=== PATIENT | male | born 1940 | race Caucasian/White ===

== ENCOUNTER 2018-04-01 11:31 | Observation (INO) | payer MEDICARE, OTHER ==
[2018-04-01 11:36] VITALS: BMI 28.1
--- NOTE | 2018-04-01 12:00 | C.PDOC ---
History Of Present Illness 77 year old male, whose PMHx includes CHF, presents to the ED for evaluation of shortness of breath which has been progressively worsening since its onset one week ago. Patient states he experiences shortness of breath with walking one block and climbing stairs at home. Patient reports experiencing mid-sternal chest tightness last night, but denies any chest pain currently. He reports increased congestion and mucus production. Patient states he was told that he has "fluid in his lungs" a few years ago. Patient denies fever, chills, leg pain , leg swelling. Time Seen by Provider: 04/01/18 11:39 Chief Complaint (Nursing): Shortness Of Breath History Per: Patient History/Exam Limitations: no limitations Onset/Duration Of Symptoms: Other (1 week ) Current Symptoms Are (Timing): Worse Quality: Tightness, "Pain" Exacerbating Factor(s): Exertion Current Respiratory Medications: See Home Med List Associated Symptoms: Chest Pain. denies: Fever, Chills Additional History Per: Patient Past Medical History Reviewed: Historical Data, Nursing Documentation, Vital Signs Vital Signs: Last Vital Signs Temp 98.7 F 04/01/18 11:35 Pulse 70 04/01/18 13:36 Resp 20 04/01/18 13:36 BP 169/85 H 04/01/18 13:36 Pulse Ox 94 L 04/01/18 14:25 - Medical History PMH: Fractures (ankle), HTN, Hypercholesterolemia, Kidney Stones Surgical History: Endoscopy - [facility] Procedures CATARAC PHACOEMULS/ASPIR (12/17/14) INSERT LENS AT CATAR EXT (12/17/14) LINEAR REP LID LACER (05/06/13) Family History: States: Unknown Family Hx - Social History Hx Tobacco Use: No Hx Alcohol Use: Yes Hx Substance Use: No - Immunization History Hx Tetanus Toxoid Vaccination: No Hx Influenza Vaccination: No Hx Pneumococcal Vaccination: No Review Of Systems Constitutional: Negative for: Fever, Chills Respiratory: Positive for: Shortness of Breath Musculoskeletal: Negative for: Leg Pain Physical Exam - Physical Exam Appears: Non-toxic, No Acute Distress Skin: Normal Color, Warm, Dry Head: Atraumatic, Normacephalic Eye(s): bilateral: Normal Inspection Oral Mucosa: Moist Neck: Supple Chest: Symmetrical, No Deformity, No Tenderness Cardiovascular: Rhythm Regular, No Murmur Respiratory: Normal Breath Sounds, No Rales, No Rhonchi, No Wheezing Extremity: Normal ROM, No Pedal Edema, Capillary Refill (less than 2 seconds ), No Swelling Neurological/Psych: Oriented x3, Normal Speech ED Course And Treatment - Laboratory Results Result Diagrams: 04/01/18 12:07 04/01/18 12:07 Lab Interpretation: No Acute Changes ECG: Interpreted By Me, Viewed By Me ECG Rhythm: Sinus Rhythm ECG Interpretation: No Acute Changes Rate From EC O2 Sat by Pulse Oximetry: 94 - CT Scan/US Chest X-Ray Other Rad Studies (CT/US): Interpreted By Me, Read By Radiologist, Radiology Report Reviewed CT/US Interpretation: HISTORY: SOB. COMPARISON: No prior. TECHNIQUE: Chest PA and lateral. FINDINGS: LUNGS: Opacity right base may be due to pleural effusion and/or superimposed infiltrate. No abnormal opacity elsewhere. PLEURA : Small right pleural effusion. No left pleural effusion. Likely fluid within right major fissure. No pneumothorax. CARDIOVASCULAR: Normal. OSSEOUS STRUCTURES: No significant abnormalities. VISUALIZED UPPER ABDOMEN: Normal. OTHER FINDINGS: None. IMPRESSION: Small right pleural effusion. Cannot rule out infiltrate at right base. Otherwise unremarkable. Medical Decision Making Medical Decision Making: Impression: 77 year old male with shortness of breath Plan: * bloodwork * urinalysis * CXR * EKG * Lasix IVP Progress: bloodwork, urinalysis, CXR, EKG ordered and reviewed. Lasix IVP administered. Contact Dr Yang for obs-admission. He accepts patient to service Also contact medical instrument technician Disposition Counseled Patient/Family Regarding: Need For Followup - Disposition Disposition: HOSPITALIZED Disposition Time: 14:10 Condition: STABLE - POA Present On Arrival: None - Clinical Impression Clinical Impression: CHF exacerbation - PA / BOMB LOADER / Resident Statement MD/DO has reviewed & agrees with the documentation as recorded. - Scribe Statement The provider has reviewed the documentation as recorded by the Scribe (Destinee Viveros) All medical record entries made by the Scribe were at my direction and personally dictated by me. I have reviewed the chart and agree that the record accurately reflects my personal performance of the history, physical exam, medical decision making, and the department course for this patient. I have also personally directed, reviewed, and agree with the discharge instructions and disposition. Decision To Admit - Pt Status Changed To: Hospital Disposition Of: Observation - . Bed Request Type: Telemetry Admitting Physician: Kian Yang Jr. Patient Diagnosis: CHF exacerbation
[2018-04-01 12:11] LABS: BASO % 0.4 % (0.0-2.0); EOS # 0.7 K/uL (0.0-0.7); EOS % 8.3 % (0.0-4.0); LYMPH % 12.4 % (20.0-40.0); MEAN CELL VOLUME 91.6 fL (80.0-94.0); MEAN CORPUSCULAR HEMOGLOBIN 31.7 pg (27.0-31.0); MEAN CORPUSCULAR HGB CONC 34.6 g/dL (33.0-37.0); MEAN PLATELET VOLUME 8.7 fL (7.2-11.7); MONO # 0.5 K/uL (0.0-0.8); MONO % 6.7 % (0.0-10.0); NEUT # 5.9 K/uL (1.8-7.0); NEUT % 72.2 % (50.0-75.0); NRBC % 0.1 % (0.0-2.0); RBC 4.4 Mil/uL (4.40-5.90); RED CELL DISTRIBUTION WIDTH 16.5 % (11.5-14.5); WHITE BLOOD COUNT 8.2 K/uL (4.8-10.8)
[2018-04-01 12:21] LABS: INR 1.2; PROTHROMBIN TIME 12.7 SECONDS (9.7-12.2)
[2018-04-01 12:36] LABS: ALB/GLOB RATIO 1.2 (1.0-2.1); ALBUMIN 4.3 g/dL (3.5-5.0); CALCIUM 8.9 mg/dl (8.6-10.4)
[2018-04-01 12:47] LABS: TROPONIN I 0.042 ng/mL (0.00-0.120)
[2018-04-01 13:16] LABS: URINE BILIRUBIN NEGATIVE (NEGATIVE); URINE BLOOD 1+ (NEGATIVE); URINE CLARITY Clear (Clear); URINE COLOR Straw (YELLOW); URINE GLUCOSE (UA) NORMAL (Normal); URINE LEUKOCYTE ESTERASE NEG Leu/uL (Negative); URINE PROTEIN 2+ mg/dL (NEGATIVE); URINE UROBILINOGEN NORMAL mg/dL (0.2-1.0)
--- NOTE | 2018-04-01 13:23 | RAD ---
HISTORY: SOB COMPARISON: No prior. TECHNIQUE: Chest PA and lateral FINDINGS: LUNGS: Opacity right base may be due to pleural effusion and/or superimposed infiltrate. No abnormal opacity elsewhere. PLEURA: Small right pleural effusion. No left pleural effusion. Likely fluid within right major fissure. No pneumothorax. CARDIOVASCULAR: Normal. OSSEOUS STRUCTURES: No significant abnormalities. VISUALIZED UPPER ABDOMEN: Normal. OTHER FINDINGS: None. IMPRESSION: Small right pleural effusion. Cannot rule out infiltrate at right base. Otherwise unremarkable.
--- NOTE | 2018-04-01 15:13 | CP.PCM.HP ---
History of Present Illness - History of Present Illness History of Present Illness: 77 year old male with past medical history of CHF, HTN, CAD s/p stent presents to the ED complaining of fatigue and shortness of breath. Patient states his symptoms started 3 days ago and they are getting worse progressively. Patient also complains of one episode of chest pain which only lasted 1 minute and it resolved by itself without any intervention. Patient's shortness of breath is worse with exertion and improves with resting. Patient sleeps in a sitting position to avoid his shortness of breath. Currently patient is resting in bed comfortably. He denies of having fever, chills, vision changes, headache, nausea, vomiting, diarrhea, or lower extremity swelling. PMD: Dr. Yang, cardiology Dr. Aguirre PMHx: CHF, HTN, CAD s/p stent PSHx: coronary stent x 1 Allergy: NKDA Social: Social alcohol consumption. Denies tobacco and other drug use Home meds: flomax, torporl, plavix, cilostazol, naproxen, cyclobenzaprine Present on Admission - Present on Admission Any Indicators Present on Admission: No Review of Systems - Review of Systems All systems: reviewed and no additional remarkable complaints except - Constitutional Constitutional: As Per HPI, Lethargy. absent: Anorexia, Chills, Fatigue, Fever - EENT Eyes: As Per HPI. absent: Decreased Night Vision, Diplopia Ears: As Per HPI. absent: Decreased Hearing, Disequilibrium, Dizziness Nose/Mouth/Throat: As Per HPI. absent: Nasal Congestion, Nasal Trauma, Sinus Pressure - Cardiovascular Cardiovascular: As Per HPI, Chest Pain, Dyspnea, Orthopnea. absent: Edema, Leg Edema - Respiratory Respiratory: As Per HPI, Dyspnea. absent: Wheezing - Gastrointestinal Gastrointestinal: As Per HPI. absent: Abdominal Pain, Diarrhea, Nausea, Vomiting - Genitourinary Genitourinary: As Per HPI. absent: Difficulty Urinating, Dysuria - Reproductive: Male Reproductive:Male: As Per HPI - Musculoskeletal Musculoskeletal: As Per HPI. absent: Abnormal Gait, Deformity, Joint Swelling - Integumentary Integumentary: As Per HPI. absent: Acne, Alopecia, Change in Nails - Neurological Neurological: As Per HPI. absent: Dizziness, Numbness, Syncope, Tremor - Psychiatric Psychiatric: As Per HPI. absent: Anxiety, Confusion, Depression - Endocrine Endocrine: As Per HPI. absent: Change in Body Appearance, Cold Intolorance - Hematologic/Lymphatic Hematologic: As Per HPI Past Patient History - Past Medical History & Family History Past Medical History?: Yes - Past Social History Smoking Status: Former Smoker - CARDIAC Hx Hypercholesterolemia: Yes Hx Hypertension: Yes - PULMONARY Hx Respiratory Disorders: Yes Other/Comment: hx pleural effusion may yrs ago - NEUROLOGICAL Hx Neurological Disorder: No - HEENT Hx HEENT Problems: Yes Hx Cataracts: Yes - RENAL Hx Kidney Stones: Yes - ENDOCRINE/METABOLIC Hx Endocrine Disorders: No - HEMATOLOGICAL/ONCOLOGICAL Hx Blood Disorders: No - INTEGUMENTARY Hx Dermatological Problems: No - MUSCULOSKELETAL/RHEUMATOLOGICAL Hx Fractures: Yes (ankle) - GASTROINTESTINAL Hx Gastrointestinal Disorders: No - GENITOURINARY/GYNECOLOGICAL Hx Genitourinary Disorders: Yes Hx Prostate Problems: Yes - PSYCHIATRIC Hx Substance Use: No - SURGICAL HISTORY Hx Surgeries: Yes Hx Cataract Extraction: Yes (right) Hx Cardiac Catheterization: Yes Hx Open Reduction Internal Fixation: Yes (ankle) - ANESTHESIA Hx Anesthesia: Yes Hx Anesthesia Reactions: No Hx Malignant Hyperthermia: No Meds Allergies/Adverse Reactions: Allergies Allergy/AdvReac Type Severity Reaction Status Date / Time No Known Allergies Allergy Verified 04/01/18 11:35 Physical Exam - Constitutional Appears: Non-toxic, No Acute Distress - Head Exam Head Exam: ATRAUMATIC, NORMOCEPHALIC - Eye Exam Eye Exam: EOMI, Normal appearance Pupil Exam: NORMAL ACCOMODATION, PERRL - ENT Exam ENT Exam: Mucous Membranes Moist - Neck Exam Neck exam: Negative for: Normal Inspection Additional comments: Right sided JVD - Respiratory Exam Respiratory Exam: Clear to Auscultation Bilateral, NORMAL BREATHING PATTERN. absent: Rhonchi, Wheezes, Respiratory Distress - Cardiovascular Exam Cardiovascular Exam: REGULAR RHYTHM, JVD. absent: Diastolic murmur, Systolic Murmur - GI/Abdominal Exam GI & Abdominal Exam: Normal Bowel Sounds, Soft. absent: Tenderness - Extremities Exam Extremities exam: Positive for: normal inspection, pedal pulses present. Negative for: joint swelling, tenderness - Back Exam Back exam: NORMAL INSPECTION - Neurological Exam Neurological exam: Alert, CN II-XII Intact, Oriented x3 - Psychiatric Exam Psychiatric exam: Normal Affect, Normal Mood - Skin Skin Exam: Dry, Normal Color, Warm Results - Vital Signs Recent Vital Signs: Last Vital Signs Temp 98.7 F 04/01/18 11:35 Pulse 70 04/01/18 13:36 Resp 20 04/01/18 13:36 BP 169/85 H 04/01/18 13:36 Pulse Ox 94 L 04/01/18 14:28 - Labs Result Diagrams: 04/01/18 12:07 04/01/18 12:07 Labs: Laboratory Results - last 24 hr 04/01/18 04/01/18 04/01/18 12:07 12:07 12:07 WBC 8.2 RBC 4.40 Hgb 14.0 Hct 40.3 MCV 91.6 MCH 31.7 H MCHC 34.6 RDW 16.5 H Plt Count 326 MPV 8.7 Neut % (Auto) 72.2 Lymph % (Auto) 12.4 L [place] % (Auto) 6.7 Eos % (Auto) 8.3 H Baso % (Auto) 0.4 Neut # (Auto) 5.9 Lymph # (Auto) 1.0 [place] # (Auto) 0.5 Eos # (Auto) 0.7 Baso # (Auto) 0.0 PT 12.7 H INR 1.2 APTT 37 H Sodium 142 Potassium 3.7 Chloride 102 Carbon Dioxide 29 Anion Gap 15 BUN 17 Creatinine 1.7 H Est GFR ( Amer) 47 Est GFR (Non-Af Amer) 39 Random Glucose 173 H Calcium 8.9 Total Bilirubin 0.8 AST 31 ALT 18 L Alkaline Phosphatase 110 Troponin I 0.0420 NT-Pro-B Natriuret Pep 1690 H Total Protein 7.8 Albumin 4.3 Globulin 3.5 Albumin/Globulin Ratio 1.2 Triglycerides 218 H Cholesterol 193 LDL Cholesterol Direct 109 HDL Cholesterol 42 Urine Color Urine Clarity Urine pH Ur Specific [place] Urine Protein Urine Glucose (UA) Urine Ketones Urine Blood Urine Nitrate Urine Bilirubin Urine Urobilinogen Ur Leukocyte Esterase Urine WBC (Auto) Urine RBC (Auto) 04/01/18 12:50 WBC RBC Hgb Hct MCV MCH MCHC RDW Plt Count MPV Neut % (Auto) Lymph % (Auto) [place] % (Auto) Eos % (Auto) Baso % (Auto) Neut # (Auto) Lymph # (Auto) [place] # (Auto) Eos # (Auto) Baso # (Auto) PT INR APTT Sodium Potassium Chloride Carbon Dioxide Anion Gap BUN Creatinine Est GFR ( Amer) Est GFR (Non-Af Amer) Random Glucose Calcium Total Bilirubin AST ALT Alkaline Phosphatase Troponin I NT-Pro-B Natriuret Pep Total Protein Albumin Globulin Albumin/Globulin Ratio Triglycerides Cholesterol LDL Cholesterol Direct HDL Cholesterol Urine Color Straw Urine Clarity Clear Urine pH 6.0 Ur Specific [place] 1.008 Urine Protein 2+ H Urine Glucose (UA) Normal Urine Ketones Negative Urine Blood 1+ H Urine Nitrate Negative Urine Bilirubin Negative Urine Urobilinogen Normal Ur Leukocyte Esterase Neg Urine WBC (Auto) < 1 Urine RBC (Auto) 1 Assessment & Plan - Assessment and Plan (Free Text) Assessment: Acute diastolic heart failure exacerbation -BNP 1690 -EKG normal sinus rhythm at 70bpm, no axis deviation, no acute ST changes -Lasix 40mg IV daily -Metoprolol 50mg BID -ASA 81mg -Follow up Echo -Cardiology consulted, Dr. Aguirre help appreciated -Daily weight -Input & output -HOB 45 degree -2gm Na diet HTN -Lisinopril 10mg -Metoprolol 50mg BID CAD -ASA 81mg -Plavix 75mg -Metoprolol 50mg BID PVD -Cilostazol 100mg po BPH -Flomax 0.4mg Prophylactic measures -Pepcid -Lovenox Discussed case with attending Dr. Yang
[2018-04-01] MEDS: Metoprolol Succinate 50 mg XL Tab PO SCH (19:13)
[2018-04-01 20:10] LABS: CK-MB 1.93 ng/mL (0.0-3.38); TROPONIN I 0.044 ng/mL (0.00-0.120)
--- NOTE | 2018-04-01 21:51 | CP.PCM.CON ---
History of Present Illness - History of Present Illness History of Present Illness: 77 year old male with past medical history of CHF, HTN, CAD s/p stent presents to the ED complaining of fatigue and shortness of breath. Patient states his symptoms started 3 days ago and they are getting worse progressively. Patient also complains of one episode of chest pain which only lasted 1 minute and it resolved by itself without any intervention. Patient's shortness of breath is worse with exertion and improves with resting. Patient sleeps in a sitting position to avoid his shortness of breath. Currently patient is resting in bed comfortably. He denies of having fever, chills, vision changes, headache, nausea, vomiting, diarrhea, or lower extremity swelling. PMD: Dr. Yang PMHx: CHF, HTN, CAD s/p stent PSHx: coronary stent x 1 Allergy: NKDA Social: Social alcohol consumption. Denies tobacco and other drug use Home meds: flomax, torporl, plavix, cilostazol, naproxen, cyclobenzaprine Present on Admission - Present on Admission Any Indicators Present on Admission: No Review of Systems - Review of Systems All systems: reviewed and no additional remarkable complaints except - Constitutional Constitutional: As Per HPI, Lethargy. absent: Anorexia, Chills, Fatigue, Fever - EENT Eyes: As Per HPI. absent: Decreased Night Vision, Diplopia Ears: As Per HPI. absent: Decreased Hearing, Disequilibrium, Dizziness Nose/Mouth/Throat: As Per HPI. absent: Nasal Congestion, Nasal Trauma, Sinus Pressure - Cardiovascular Cardiovascular: As Per HPI, Chest Pain, Dyspnea, Orthopnea. absent: Edema, Leg Edema - Respiratory Respiratory: As Per HPI, Dyspnea. absent: Wheezing - Gastrointestinal Gastrointestinal: As Per HPI. absent: Abdominal Pain, Diarrhea, Nausea, Vomiting - Genitourinary Genitourinary: As Per HPI. absent: Difficulty Urinating, Dysuria - Reproductive: Male Reproductive:Male: As Per HPI - Musculoskeletal Musculoskeletal: As Per HPI. absent: Abnormal Gait, Deformity, Joint Swelling - Integumentary Integumentary: As Per HPI. absent: Acne, Alopecia, Change in Nails - Neurological Neurological: As Per HPI. absent: Dizziness, Numbness, Syncope, Tremor - Psychiatric Psychiatric: As Per HPI. absent: Anxiety, Confusion, Depression - Endocrine Endocrine: As Per HPI. absent: Change in Body Appearance, Cold Intolorance - Hematologic/Lymphatic Hematologic: As Per HPI Physical Exam - Constitutional Appears: Non-toxic, No Acute Distress - Head Exam Head Exam: ATRAUMATIC, NORMOCEPHALIC - Eye Exam Eye Exam: EOMI, Normal appearance Pupil Exam: NORMAL ACCOMODATION, PERRL - ENT Exam ENT Exam: Mucous Membranes Moist - Neck Exam Neck exam: Negative for: Normal Inspection Additional comments: Right sided JVD - Respiratory Exam Respiratory Exam: Clear to Auscultation Bilateral, NORMAL BREATHING PATTERN. absent: Rhonchi, Wheezes, Respiratory Distress - Cardiovascular Exam Cardiovascular Exam: REGULAR RHYTHM, JVD. absent: Diastolic murmur, Systolic Murmur - GI/Abdominal Exam GI & Abdominal Exam: Normal Bowel Sounds, Soft. absent: Tenderness - Extremities Exam Extremities exam: Positive for: normal inspection, pedal pulses present. Negative for: joint swelling, tenderness - Back Exam Back exam: NORMAL INSPECTION - Neurological Exam Neurological exam: Alert, CN II-XII Intact, Oriented x3 - Psychiatric Exam Psychiatric exam: Normal Affect, Normal Mood - Skin Skin Exam: Dry, Normal Color, Warm Past Patient History - Past Medical History & Family History Past Medical History?: Yes - Past Social History Smoking Status: Former Smoker - CARDIAC Hx Hypercholesterolemia: Yes Hx Hypertension: Yes - PULMONARY Hx Respiratory Disorders: Yes Other/Comment: hx pleural effusion may yrs ago - NEUROLOGICAL Hx Neurological Disorder: No - HEENT Hx HEENT Problems: Yes Hx Cataracts: Yes - RENAL Hx Kidney Stones: Yes - ENDOCRINE/METABOLIC Hx Endocrine Disorders: No - HEMATOLOGICAL/ONCOLOGICAL Hx Blood Disorders: No - INTEGUMENTARY Hx Dermatological Problems: No - MUSCULOSKELETAL/RHEUMATOLOGICAL Hx Fractures: Yes (ankle) - GASTROINTESTINAL Hx Gastrointestinal Disorders: No - GENITOURINARY/GYNECOLOGICAL Hx Genitourinary Disorders: Yes Hx Prostate Problems: Yes - PSYCHIATRIC Hx Substance Use: No - SURGICAL HISTORY Hx Surgeries: Yes Hx Cataract Extraction: Yes (right) Hx Cardiac Catheterization: Yes Hx Open Reduction Internal Fixation: Yes (ankle) - ANESTHESIA Hx Anesthesia: Yes Hx Anesthesia Reactions: No Hx Malignant Hyperthermia: No Meds Home Medications: Home Medication List Medication Instructions Recorded Confirmed Type Lisinopril [Zestril] 20 mg PO DAILY 30 Days #60 tab 04/03/18 Rx Allergies/Adverse Reactions: Allergies Allergy/AdvReac Type Severity Reaction Status Date / Time No Known Allergies Allergy Verified 04/01/18 11:35 - Medications Medications: Current Medications Aspirin (Ecotrin) 81 mg PO DAILY [facility] Cilostazol (Pletal) 100 mg PO DAILY [facility] Clopidogrel Bisulfate (Plavix) 75 mg PO DAILY [facility] Enoxaparin Sodium (Lovenox) 40 mg SC DAILY [facility] Famotidine (Pepcid) 20 mg PO DAILY [facility] Furosemide (Lasix) 40 mg IVP DAILY [facility] Lisinopril (Zestril) 10 mg PO DAILY [facility] Metoprolol Succinate (Toprol Xl) 50 mg PO BID [facility] Last Admin: 04/01/18 19:13 Dose: 50 mg Tamsulosin HCl (Flomax) 0.4 mg PO DAILY [facility] Results - Vital Signs Recent Vital Signs: Last Vital Signs Temp 97.9 F 04/01/18 16:38 Pulse 69 04/01/18 16:38 Resp 20 04/01/18 16:38 BP 175/93 H 04/01/18 16:38 Pulse Ox 96 04/01/18 14:50 - Labs Result Diagrams: 04/03/18 06:18 04/03/18 06:18 Labs: Laboratory Results - last 24 hr 04/01/18 04/01/18 04/01/18 12:07 12:07 12:07 WBC 8.2 RBC 4.40 Hgb 14.0 Hct 40.3 MCV 91.6 MCH 31.7 H MCHC 34.6 RDW 16.5 H Plt Count 326 MPV 8.7 Neut % (Auto) 72.2 Lymph % (Auto) 12.4 L [place] % (Auto) 6.7 Eos % (Auto) 8.3 H Baso % (Auto) 0.4 Neut # (Auto) 5.9 Lymph # (Auto) 1.0 [place] # (Auto) 0.5 Eos # (Auto) 0.7 Baso # (Auto) 0.0 PT 12.7 H INR 1.2 APTT 37 H Sodium 142 Potassium 3.7 Chloride 102 Carbon Dioxide 29 Anion Gap 15 BUN 17 Creatinine 1.7 H Est GFR ( Amer) 47 Est GFR (Non-Af Amer) 39 Random Glucose 173 H Calcium 8.9 Total Bilirubin 0.8 AST 31 ALT 18 L Alkaline Phosphatase 110 Total Creatine Kinase CK-MB (Mass) Troponin I 0.0420 NT-Pro-B Natriuret Pep 1690 H Total Protein 7.8 Albumin 4.3 Globulin 3.5 Albumin/Globulin Ratio 1.2 Triglycerides 218 H Cholesterol 193 LDL Cholesterol Direct 109 HDL Cholesterol 42 Urine Color Urine Clarity Urine pH Ur Specific [place] Urine Protein Urine Glucose (UA) Urine Ketones Urine Blood Urine Nitrate Urine Bilirubin Urine Urobilinogen Ur Leukocyte Esterase Urine WBC (Auto) Urine RBC (Auto) 04/01/18 04/01/18 12:50 19:30 WBC RBC Hgb Hct MCV MCH MCHC RDW Plt Count MPV Neut % (Auto) Lymph % (Auto) [place] % (Auto) Eos % (Auto) Baso % (Auto) Neut # (Auto) Lymph # (Auto) [place] # (Auto) Eos # (Auto) Baso # (Auto) PT INR APTT Sodium Potassium Chloride Carbon Dioxide Anion Gap BUN Creatinine Est GFR ( Amer) Est GFR (Non-Af Amer) Random Glucose Calcium Total Bilirubin AST ALT Alkaline Phosphatase Total Creatine Kinase 119 CK-MB (Mass) 1.93 Troponin I 0.0440 NT-Pro-B Natriuret Pep Total Protein Albumin Globulin Albumin/Globulin Ratio Triglycerides Cholesterol LDL Cholesterol Direct HDL Cholesterol Urine Color Straw Urine Clarity Clear Urine pH 6.0 Ur Specific [place] 1.008 Urine Protein 2+ H Urine Glucose (UA) Normal Urine Ketones Negative Urine Blood 1+ H Urine Nitrate Negative Urine Bilirubin Negative Urine Urobilinogen Normal Ur Leukocyte Esterase Neg Urine WBC (Auto) < 1 Urine RBC (Auto) 1 Assessment & Plan - Assessment and Plan (Free Text) Assessment: Acute diastolic heart failure exacerbation -BNP 1690 -EKG normal sinus rhythm at 70bpm, no axis deviation, no acute ST changes -Lasix 40mg IV daily -Metoprolol 50mg BID -ASA 81mg -Follow up Echo -Daily weight -Input & output -HOB 45 degree -2gm Na diet HTN -Lisinopril 10mg -Metoprolol 50mg BID CAD -ASA 81mg -Plavix 75mg -Metoprolol 50mg BID PVD -Cilostazol 100mg po BPH -Flomax 0.4mg Prophylactic measures -Pepcid -Lovenox
[2018-04-02 01:32] LABS: CK-MB 1.33 ng/mL (0.0-3.38); TROPONIN I 0.047 ng/mL (0.00-0.120)
[2018-04-02] MEDS ORDERED: Pneumococcal 23-Valent Vaccine IM ONE (10:00)
[2018-04-02] MEDS: Metoprolol Succinate 50 mg XL Tab PO SCH ×2 (10:03→18:10)
[2018-04-02] MEDS: Enoxaparin 40 mg Syringe SC SCH (10:04)
[2018-04-02] MEDS: Cilostazol 100 mg Tab UD PO SCH (10:04)
--- NOTE | 2018-04-02 14:43 | CP.PCM.PN ---
Subjective - Date & Time of Evaluation Date of Evaluation: 04/02/18 Time of Evaluation: 11:15 - Subjective Subjective: Patient seen and examined at bedside. Patient was hypertensive overnight but asymptomatic, Hydralazine IV was given. Currently he is resting in bed comfortably. Patient understands that he needs cardiology evaluation and echo. Patient denies fever, chills, shortness of breath, chest pain, nausea, vomiting , or urinary symptoms. Objective - Vital Signs/Intake and Output Vital Signs (last 24 hours): Temp Pulse Resp BP Pulse Ox 98.2 F 71 18 178/76 H 96 04/02/18 07:40 04/02/18 12:35 04/02/18 07:40 04/02/18 10:02 04/02/18 12:02 - Medications Medications: Current Medications Aspirin (Ecotrin) 81 mg PO DAILY [facility] Last Admin: 04/02/18 10:03 Dose: 81 mg Cilostazol (Pletal) 100 mg PO DAILY [facility] Last Admin: 04/02/18 10:04 Dose: 100 mg Clopidogrel Bisulfate (Plavix) 75 mg PO DAILY [facility] Last Admin: 04/02/18 10:03 Dose: 75 mg Enoxaparin Sodium (Lovenox) 40 mg SC DAILY [facility] Last Admin: 04/02/18 10:04 Dose: 40 mg Famotidine (Pepcid) 20 mg PO DAILY [facility] Last Admin: 04/02/18 10:03 Dose: 20 mg Furosemide (Lasix) 40 mg IVP DAILY [facility] Last Admin: 04/02/18 10:02 Dose: 40 mg Lisinopril (Zestril) 10 mg PO DAILY [facility] Last Admin: 04/02/18 10:03 Dose: 10 mg Metoprolol Succinate (Toprol Xl) 50 mg PO BID [facility] Last Admin: 04/02/18 10:03 Dose: 50 mg Tamsulosin HCl (Flomax) 0.4 mg PO DAILY [facility] Last Admin: 04/02/18 10:03 Dose: 0.4 mg - Labs Labs: 04/01/18 12:07 04/01/18 12:07 PT 12.7 SECONDS (9.7-12.2) H 04/01/18 12:07 INR 1.2 04/01/18 12:07 APTT 37 SECONDS (21-34) H 04/01/18 12:07 - Additional Findings Additional findings: - Constitutional Appears: Non-toxic, No Acute Distress - Head Exam Head Exam: ATRAUMATIC, NORMOCEPHALIC - Eye Exam Eye Exam: EOMI, Normal appearance Pupil Exam: NORMAL ACCOMODATION, PERRL - ENT Exam ENT Exam: Mucous Membranes Moist - Neck Exam Neck exam: Negative for: Normal Inspection - Respiratory Exam Respiratory Exam: Clear to Auscultation Bilateral, NORMAL BREATHING PATTERN. absent: Rhonchi, Wheezes, Respiratory Distress - Cardiovascular Exam Cardiovascular Exam: REGULAR RHYTHM, JVD. absent: Diastolic murmur, Systolic Murmur - GI/Abdominal Exam GI & Abdominal Exam: Normal Bowel Sounds, Soft. absent: Tenderness - Extremities Exam Extremities exam: Positive for: normal inspection, pedal pulses present. Negative for: joint swelling, tenderness - Back Exam Back exam: NORMAL INSPECTION - Neurological Exam Neurological exam: Alert, CN II-XII Intact, Oriented x3 - Psychiatric Exam Psychiatric exam: Normal Affect, Normal Mood - Skin Skin Exam: Dry, Normal Color, Warm Assessment and Plan - Assessment and Plan (Free Text) Assessment: Acute diastolic heart failure exacerbation -Troponin negative x3 -BNP 1690 -EKG normal sinus rhythm at 70bpm, no axis deviation, no acute ST changes -Lasix 40mg IV daily -Metoprolol 50mg BID -ASA 81mg -Follow up Echo -Cardiology consulted, Dr. Aguirre help appreciated -Daily weight -Input & output -HOB 45 degree -2gm Na diet HTN -Lisinopril 20mg -Metoprolol 50mg BID CAD -ASA 81mg -Plavix 75mg -Metoprolol 50mg BID PVD -Cilostazol 100mg po BPH -Flomax 0.4mg Prophylactic measures -Pepcid -Lovenox
[2018-04-03 06:31] LABS: BASO # 0.1 K/uL (0.0-0.2); BASO % 1.5 % (0.0-2.0); EOS # 0.6 K/uL (0.0-0.7); EOS % 7.7 % (0.0-4.0); HEMOGLOBIN 13.5 g/dL (12.0-18.0); LYMPH # 0.9 K/uL (1.0-4.3); LYMPH % 11.5 % (20.0-40.0); MEAN CELL VOLUME 91.1 fL (80.0-94.0); MEAN CORPUSCULAR HEMOGLOBIN 32.1 pg (27.0-31.0); MEAN CORPUSCULAR HGB CONC 35.3 g/dL (33.0-37.0); MEAN PLATELET VOLUME 8.7 fL (7.2-11.7); MONO # 0.7 K/uL (0.0-0.8); MONO % 9.5 % (0.0-10.0); NEUT # 5.3 K/uL (1.8-7.0); NEUT % 69.8 % (50.0-75.0); NRBC % 0.1 % (0.0-2.0); RBC 4.2 Mil/uL (4.40-5.90); RED CELL DISTRIBUTION WIDTH 16.2 % (11.5-14.5); WHITE BLOOD COUNT 7.6 K/uL (4.8-10.8)
[2018-04-03 06:50] LABS: ALB/GLOB RATIO 1.2 (1.0-2.1); ALBUMIN 3.7 g/dL (3.5-5.0); CALCIUM 8.3 mg/dl (8.6-10.4)
[2018-04-03 08:02] VITALS: O2SAT 96
[2018-04-03] MEDS: Metoprolol Succinate 50 mg XL Tab PO SCH ×2 (10:40→17:48)
[2018-04-03] MEDS: Cilostazol 100 mg Tab UD PO SCH (10:41)
[2018-04-03] MEDS: Enoxaparin 40 mg Syringe SC SCH (10:41)
[2018-04-03 15:44] VITALS: BP 156/73; RESP 20; TEMP 97.8
--- NOTE | 2018-04-03 16:26 | CARD ---
APPROVED REPORT EXAM: Two-dimensional and M-mode echocardiogram with Doppler and color Doppler. Other Information Quality : GoodRhythm : INDICATION Cardiac Disease: CAD Congestive Heart Failure RISK FACTORS Hypertension 2D DIMENSIONS IVSd1.3 (0.7-1.1cm)LVDd4.8 (3.9-5.9cm) PWd1.3 (0.7-1.1cm)LVDs2.7 (2.5-4.0cm) FS (%) 43.5 %LVEF (%)65.0 (>50%) M-Mode DIMENSIONS Left Atrium (MM)4.36 (2.5-4.0cm)IVSd1.10 (0.7-1.1cm) Aortic Root3.52 (2.2-3.7cm)LVDd5.75 (4.0-5.6cm) Aortic Cusp Exc.2.12 (1.5-2.0cm)PWd1.08 (0.7-1.1cm) FS (%) 39 %LVDs3.49 (2.0-3.8cm) LVEF (%)69 (>50%) Mitral Valve MV E Asfexldk59.3cm/sMV A Ghkylfxb185.9cm/sE/A ratio0.7 TDI E/Lateral E'0.0E/Medial E'0.0 Tricuspid Valve TR Peak Zplxuvip847rr/sTR Peak Gr.89lxZtUCFB71xmHu LEFT VENTRICLE The left ventricle is normal size. There is mild concentric left ventricular hypertrophy. The left ventricular ejection fraction is within the normal range. Mild lateral wall hypokinesis Transmitral Doppler flow pattern is Grade I-abnormal relaxation pattern. RIGHT VENTRICLE The right ventricle is normal size. There is normal right ventricular wall thickness. The right ventricular systolic function is normal. ATRIA The left atrium is borderline dilated. The right atrium size is normal. AORTIC VALVE The aortic valve is mildly thickened. No aortic regurgitation is present. There is no aortic valvular stenosis. MITRAL VALVE The mitral valve is normal in structure. There is no evidence of mitral valve prolapse. TRICUSPID VALVE There is mild pulmonary hypertension. GREAT VESSELS The aortic root is normal in size. PERICARDIAL EFFUSION There is no pericardial effusion. <Conclusion> The left ventricle is normal size. There is mild concentric left ventricular hypertrophy. The left ventricular ejection fraction is within the normal range. Mild lateral wall hypokinesis Transmitral Doppler flow pattern is Grade I-abnormal relaxation pattern. There is mild pulmonary hypertension.
[2018-04-03 16:39] VITALS: PULSE 75
--- NOTE | 2018-04-03 18:35 | CP.PCM.DIS ---
Provider - Provider Date of Admission: 04/01/18 13:26 Attending physician: Kian Yang Jr, MD Primary care physician: PMD: Dr Yang Consults: Cardio: Dr Aguirre Time Spent in preparation of Discharge (in minutes): 33 Diagnosis - Discharge Diagnosis (1) CHF exacerbation Status: Resolved Priority: High Hospital Course - Lab Results Lab Results: Most Recent Lab Values WBC 7.6 K/uL (4.8-10.8) 04/03/18 06:18 RBC 4.20 Mil/uL (4.40-5.90) L 04/03/18 06:18 Hgb 13.5 g/dL (12.0-18.0) 04/03/18 06:18 Hct 38.3 % (35.0-51.0) 04/03/18 06:18 MCV 91.1 fL (80.0-94.0) 04/03/18 06:18 MCH 32.1 pg (27.0-31.0) H 04/03/18 06:18 MCHC 35.3 g/dL (33.0-37.0) 04/03/18 06:18 RDW 16.2 % (11.5-14.5) H 04/03/18 06:18 Plt Count 291 K/uL (130-400) 04/03/18 06:18 MPV 8.7 fL (7.2-11.7) 04/03/18 06:18 Neut % (Auto) 69.8 % (50.0-75.0) 04/03/18 06:18 Lymph % (Auto) 11.5 % (20.0-40.0) L 04/03/18:18 [place] % (Auto) 9.5 % (0.0-10.0) 04/03/18 06:18 Eos % (Auto) 7.7 % (0.0-4.0) H 04/03/18 06:18 Baso % (Auto) 1.5 % (0.0-2.0) 04/03/18 06:18 Neut # (Auto) 5.3 K/uL (1.8-7.0) 04/03/18 06:18 Lymph # (Auto) 0.9 K/uL (1.0-4.3) L 06/18/18 06:18 [place] # (Auto) 0.7 K/uL (0.0-0.8) 04/03/18 06:18 Eos # (Auto) 0.6 K/uL (0.0-0.7) 04/03/18 06:18 Baso # (Auto) 0.1 K/uL (0.0-0.2) 04/03/18 06:18 PT 12.7 SECONDS (9.7-12.2) H 04/01/18 12:07 INR 1.2 04/01/18 12:07 APTT 37 SECONDS (21-34) H 04/01/18 12:07 Sodium 141 mmol/L (132-148) 04/03/18 06:18 Potassium 4.0 mmol/L (3.6-5.2) 04/03/18 06:18 Chloride 100 mmol/L (98-107) 04/03/18 06:18 Carbon Dioxide 31 mmol/L (22-30) H 04/03/18 06:18 Anion Gap 13 (10-20) 04/03/18 06:18 BUN 29 mg/dL (9-20) H 04/03/18 06:18 Creatinine 2.2 mg/dL (0.8-1.5) H 04/03/18 06:18 Est GFR ( Amer) 35 04/03/18 06:18 Est GFR (Non-Af Amer) 29 04/03/18 06:18 POC Glucose (mg/dL) 127 mg/dL (65-110) H 04/02/18 16:20 Random Glucose 130 mg/dL (75-110) H 04/03/18 06:18 Calcium 8.3 mg/dl (8.6-10.4) L 04/03/18 06:18 Total Bilirubin 0.8 mg/dL (0.2-1.3) 04/03/18 06:18 AST 21 U/L (17-59) 04/03/18 06:18 ALT 20 U/L (21-72) L 04/03/18 06:18 Alkaline Phosphatase 91 U/L (38-126) 04/03/18 06:18 Total Creatine Kinase 110 U/L (55-170) 04/02/18 01:05 CK-MB (Mass) 1.33 ng/mL (0.0-3.38) 04/02/18 01:05 Troponin I 0.0470 ng/mL (0.00-0.120) 04/02/18 01:05 NT-Pro-B Natriuret Pep 1690 pg/mL (0-900) H 04/01/18 12:07 Total Protein 6.7 g/dL (6.3-8.3) 04/03/18 06:18 Albumin 3.7 g/dL (3.5-5.0) 04/03/18 06:18 Globulin 3.0 gm/dL (2.2-3.9) 04/03/18 06:18 Albumin/Globulin Ratio 1.2 (1.0-2.1) 04/03/18 06:18 Triglycerides 218 mg/dL (0-149) H 04/01/18 12:07 Cholesterol 193 mg/dL (0-199) 04/01/18 12:07 LDL Cholesterol Direct 109 mg/dL (0-129) 04/01/18 12:07 HDL Cholesterol 42 mg/dL (30-70) 04/01/18 12:07 Urine Color Straw (YELLOW) 04/01/18 12:50 Urine Clarity Clear (Clear) 04/01/18 12:50 Urine pH 6.0 (5.0-8.0) 04/01/18 12:50 Ur Specific [place] 1.008 (1.003-1.030) 04/01/18 12:50 Urine Protein 2+ mg/dL (NEGATIVE) H 04/01/18 12:50 Urine Glucose (UA) Normal mg/dL (Normal) 04/01/18 12:50 Urine Ketones Negative mg/dL (NEGATIVE) 04/01/18 12:50 Urine Blood 1+ (NEGATIVE) H 04/01/18 12:50 Urine Nitrate Negative (NEGATIVE) 04/01/18 12:50 Urine Bilirubin Negative (NEGATIVE) 04/01/18 12:50 Urine Urobilinogen Normal mg/dL (0.2-1.0) 04/01/18 12:50 Ur Leukocyte Esterase Neg Rebecca/uL (Negative) 04/01/18 12:50 Urine WBC (Auto) < 1 /hpf (0-5) 04/01/18 12:50 Urine RBC (Auto) 1 /hpf (0-3) 06/16/18 12:50 - Hospital Course Hospital Course: History of Present Illness: 77 year old male with past medical history of CHF, HTN, CAD s/p stent presents to the ED complaining of fatigue and shortness of breath. Patient states his symptoms started 3 days ago and they are getting worse progressively. Patient also complains of one episode of chest pain which only lasted 1 minute and it resolved by itself without any intervention. Patient's shortness of breath is worse with exertion and improves with resting. Patient sleeps in a sitting position to avoid his shortness of breath. Currently patient is resting in bed comfortably. He denies of having fever, chills, vision changes, headache, nausea, vomiting, diarrhea, or lower extremity swelling. PMD: Dr. Yang, cardiology Dr. Aguirre PMHx: CHF, HTN, CAD s/p stent PSHx: coronary stent x 1 Allergy: NKDA Social: Social alcohol consumption. Denies tobacco and other drug use Home meds: flomax, torporl, plavix, cilostazol, naproxen, cyclobenzaprine HOSPITAL COURSE: Patient was admitted for acute diastolic CHF exacerbation. He was given lasix, lisinopril and metoprolol as well as aspirin. An Echo was ordered which showed diastolic dysfunction, and normal EF. Cardiology Dr Aguirre was consulted. Trops were negative x3, EKG showed normal sinus rhythm at 70bpm, no axis deviation, no acute ST changes. His daily weights were monitored as well as inputs and outputs. His symptoms resolved on the 3rd day and he was ambulating without shortness of breath. His other chronic conditions were managed as the follows: HTN -Lisinopril 20mg -Metoprolol 50mg BID CAD -ASA 81mg -Plavix 75mg -Metoprolol 50mg BID PVD -Cilostazol 100mg po BPH -Flomax 0.4mg Discharge Exam - Head Exam Head Exam: ATRAUMATIC, NORMOCEPHALIC - Additional Findings Additional findings: - Constitutional Appears: Non-toxic, No Acute Distress - Head Exam Head Exam: ATRAUMATIC, NORMOCEPHALIC - Eye Exam Eye Exam: EOMI, Normal appearance Pupil Exam: NORMAL ACCOMODATION, PERRL - ENT Exam ENT Exam: Mucous Membranes Moist - Neck Exam Neck exam: Negative for: Normal Inspection - Respiratory Exam Respiratory Exam: Clear to Auscultation Bilateral, NORMAL BREATHING PATTERN. absent: Rhonchi, Wheezes, Respiratory Distress - Cardiovascular Exam Cardiovascular Exam: REGULAR RHYTHM, JVD. absent: Diastolic murmur, Systolic Murmur - GI/Abdominal Exam GI & Abdominal Exam: Normal Bowel Sounds, Soft. absent: Tenderness - Extremities Exam Extremities exam: Positive for: normal inspection, pedal pulses present. Negative for: joint swelling, tenderness - Back Exam Back exam: NORMAL INSPECTION - Neurological Exam Neurological exam: Alert, CN II-XII Intact, Oriented x3 - Psychiatric Exam Psychiatric exam: Normal Affect, Normal Mood - Skin Skin Exam: Dry, Normal Color, Warm Discharge Plan - Discharge Medications Prescriptions: Lisinopril [Zestril] 20 mg PO DAILY 30 Days #60 tab - Follow Up Plan Condition: STABLE Disposition: HOME/ ROUTINE Instructions: Heart Failure (DC), Heart Failure (GEN), Pacemaker (DC), Pacemaker (GEN), Pulmonary Edema (DC), Pulmonary Edema (GEN), Ascites (DC), Ascites (GEN) Additional Instructions: Patient is medically cleared for discharge. Patient will need to start the following new medication which has been electronically sent over to his pharmacy: 1. Lisinopril 20mg PO QD to be taken at night before bed Please continue all your regular home medications, this includes: Cilostazol Clopidogrel Cyclobenzaprine as needed only Metoprolol Succinate XL Tamsulosin Tramadol as needed only Please make an appointment with environmental services tech Dr Aguirre and see him 1 week after discharge. His information has been provided. If symptoms return, please return to your closest ER. Referrals: Pablo Aguirre MD [Staff Provider] - Kian Yang Jr., MD [Medical Doctor] - Clinical Quality Measures - CQM - Heart Failure Ejection Fraction: 40 % or Greater Left Ventricular Function to be assessed after discharge: No ELIZABETH Inhibitor Prescribed: Yes Beta-Alessandra Prescribed: Metoprolol Succinate Angiotensin II Receptor Alessandra Prescribed: No Contraindication/Reason for not providing: ELIZABETH inhibitor prescribed AnticoagulationTherapy for Atrial Fibrillation/Atrialflutter: No Contraindication/Reason for not providing: not indicated, he was in NSR Aldosterone Antagonist Prescribed: No Contraindication/Reason for not providing: normal EF Will be discharged to: Home Follow Up Date (must be within 7 days from discharge): 04/10/18 (with Dr Aguirre) Follow Up Time: 09:00
[2018-04-04] MEDS ORDERED: Enoxaparin 30 mg Syringe SC SCH (10:00)
--- NOTE | 2018-04-04 12:14 | CARD ---
APPROVED REPORT EKG Measurement Heart [id number] FL [id number] <Conclusion> Normal sinus rhythm Septal infarct, age undetermined Abnormal ECG
--- NOTE | 2018-04-04 12:14 | CARD ---
APPROVED REPORT EKG Measurement Heart [id number] <Conclusion> Normal sinus rhythm Normal ECG
--- NOTE | 2018-04-04 17:37 | PCM.HF ---
Heart Failure Core Measure - Heart Failure Ejection Fraction: 40 % or Greater ELIZABETH Inhibitor Prescribed: Yes Beta-Alessandra Prescribed: Metoprolol Succinate Angiotensin II Receptor Alessandra Prescribed: No Contraindication/Reason for not providing: on elizabeth AnticoagulationTherapy for Atrial Fibrillation/Atrialflutter: No Contraindication/Reason for not providing: no hx of afib Aldosterone Antagonist Prescribed: No Contraindication/Reason for not providing: EF>45 Hydralazine Nitrate Prescribed: No Contraindication/Reason for not providing: EF>45 Implantable Cardioverter Defibrillator Therapy: No Contraindication/Reason for not providing: EF>45 Cardiac Resynchronization Therapy Prescribed: No Contraindication/Reason for not providing: EF.45 - Follow up Will be discharged to: Home Follow Up Date (must be within 7 days from discharge): 04/07/18 Follow Up Time: 09:00
== END 2018-04-03 20:37 | disposition home or self-care (01) ==
LOC: C.ER 11:31 → C.9E 13:26 → C.6T 14:12
PROVIDERS: ADMIT Internal Medicine; ATTEND Internal Medicine
DX: I11.0 Hypertensive heart disease with heart failure (principal); I50.31 Acute diastolic (congestive) heart failure; I25.10 Atherosclerotic heart disease of native coronary artery without angina pectoris; Z95.5 Presence of coronary angioplasty implant and graft; I73.9 Peripheral vascular disease, unspecified; N40.0 Benign prostatic hyperplasia without lower urinary tract symptoms; E78.00 Pure hypercholesterolemia, unspecified; Z87.891 Personal history of nicotine dependence; Z87.442 Personal history of urinary calculi; Z79.82 Long term (current) use of aspirin; Z79.02 Long term (current) use of antithrombotics/antiplatelets; Z79.899 Other long term (current) drug therapy
CPT/HCPCS: 36415; 71046; 80053; 80061; 81001; 82948; 83880; 84484; 85025; 85610; 85730; 90732; 93005; 93306; 96372; 96374; 96375; 96376; 97116; 97162; 99285; G0009; G0378; G8978; G8979; J0360; J1650; J1940

== ENCOUNTER 2018-04-10 21:18 | Inpatient (IN) | payer MEDICARE, OTHER ==
[2018-04-10 21:19] VITALS: BMI 28.1
--- NOTE | 2018-04-10 21:53 | C.PDOC ---
History Of Present Illness pt presents with worsening shortness of breath for a few days. No chest pain or palpitations. Speaking in 4-5 word sentences. No f/c/n/v. Time Seen by Provider: 04/10/18 21:52 Chief Complaint (Nursing): Shortness Of Breath History Per: Patient History/Exam Limitations: no limitations Onset/Duration Of Symptoms: Days Current Symptoms Are (Timing): Worse Initiating Event: Other Exacerbating Factor(s): Exertion, Laying Flat, Coughing Severity: Moderate Pain Scale Rating Of: 5 Associated Symptoms: denies: Fever, Chills Reports Recently: Seen In ED, Treated By A Physician, Hospitalized Recent travel outside of the [place]: No Additional History Per: Family Past Medical History Reviewed: Historical Data, Nursing Documentation, Vital Signs Vital Signs: Last Vital Signs Temp 99.5 F 04/10/18 22:00 Pulse 64 04/10/18 22:00 Resp 18 04/10/18 22:00 BP 184/78 H 04/10/18 22:00 Pulse Ox 98 04/10/18 22:00 - Medical History PMH: Fractures (ankle), HTN, Hypercholesterolemia, Hypothyroidism, Kidney Stones Denies: Chronic Kidney Disease Surgical History: Endoscopy - [facility] Procedures CATARAC PHACOEMULS/ASPIR (12/17/14) INSERT LENS AT CATAR EXT (12/17/14) LINEAR REP LID LACER (05/06/13) Family History: States: Unknown Family Hx - Social History Hx Tobacco Use: No Hx Alcohol Use: Yes Hx Substance Use: No - Immunization History Hx Tetanus Toxoid Vaccination: Yes Hx Influenza Vaccination: Yes Hx Pneumococcal Vaccination: Yes Review Of Systems Constitutional: Negative for: Fever, Chills Eyes: Negative for: Redness Cardiovascular: Negative for: Chest Pain Respiratory: Positive for: Shortness of Breath, SOB with Excertion Gastrointestinal: Negative for: Nausea, Vomiting, Abdominal Pain Genitourinary: Negative for: Dysuria Musculoskeletal: Negative for: Back Pain Skin: Negative for: Rash Neurological: Negative for: Weakness Psych: Positive for: Anxiety Physical Exam - Physical Exam Appears: Non-toxic Skin: Warm, Dry Head: Normacephalic Eye(s): bilateral: Normal Inspection Oral Mucosa: Moist Neck: Supple Chest: Symmetrical Cardiovascular: Rhythm Regular Respiratory: Decreased Breath Sounds, Rales, No Rhonchi, No Wheezing Gastrointestinal/Abdominal: Bowel Sounds (tympanic to percussion), Soft, No Tenderness, Distention Back: Normal Inspection Extremity: Pedal Edema (trace) Extremity: Bilateral: Atraumatic Pulses: Left Dorsalis Pedis: Normal, Right Dorsalis Pedis: Normal Neurological/Psych: Oriented x3 Gait: Steady ED Course And Treatment - Laboratory Results Result Diagrams: 04/10/18 22:12 04/10/18 22:12 ECG: Interpreted By Me, Viewed By Me ECG Rhythm: Sinus Rhythm (57), Nonspecific Changes O2 Sat by Pulse Oximetry: 95 Pulse Ox Interpretation: Normal - Radiology CXR: Interpreted by Me, Viewed By Me Disposition Discussed With Dr.: Kian Yang Jr. Comment: accepted the pt on his service and took over the care at 11:10 PM Doctor Will See Patient In The: ED Counseled Patient/Family Regarding: Studies Performed, Diagnosis - Disposition Disposition: HOSPITALIZED Disposition Time: 21:53 Condition: FAIR Forms: [facility] (Amharic) - POA Present On Arrival: None - Clinical Impression Clinical Impression: Dyspnea, CHF (congestive heart failure), Renal insufficiency Decision To Admit - Pt Status Changed To: Hospital Disposition Of: Inpatient - Admit Certification Admit to Inpatient:: After my assessment, the patient will require hospitalization for at least two midnights. This is because of the severity of symptoms shown, intensity of services needed, and/or the medical risk in this patient being treated as an outpatient. - InPatient: Physician Admission Certification: I certify that this patient requires 2 or more midnights of care for the following reason:: After my assessment, the patient will require hospitalization for at least two midnights. This is because of the severity of symptoms shown, intensity of services needed, and/or the medical risk in this patient being treated as an outpatient. - . Bed Request Type: Telemetry Admitting Physician: Kian Yang Jr. Patient Diagnosis: Dyspnea, CHF (congestive heart failure), Renal insufficiency
[2018-04-10 22:18] LABS: BASO # 0.2 K/uL (0.0-0.2); BASO % 2.4 % (0.0-2.0); EOS # 0.8 K/uL (0.0-0.7); EOS % 9.3 % (0.0-4.0); HEMOGLOBIN 13.3 g/dL (12.0-18.0); LYMPH # 1.6 K/uL (1.0-4.3); LYMPH % 18.7 % (20.0-40.0); MEAN CELL VOLUME 92.9 fL (80.0-94.0); MEAN CORPUSCULAR HEMOGLOBIN 31.3 pg (27.0-31.0); MEAN CORPUSCULAR HGB CONC 33.7 g/dL (33.0-37.0); MEAN PLATELET VOLUME 8.9 fL (7.2-11.7); MONO # 0.8 K/uL (0.0-0.8); MONO % 9.2 % (0.0-10.0); NEUT # 5.3 K/uL (1.8-7.0); NEUT % 60.4 % (50.0-75.0); NRBC % 0.1 % (0.0-2.0); RBC 4.25 Mil/uL (4.40-5.90); RED CELL DISTRIBUTION WIDTH 15.8 % (11.5-14.5); WHITE BLOOD COUNT 8.7 K/uL (4.8-10.8)
[2018-04-10 22:25] LABS: INR 1.1; PROTHROMBIN TIME 12.2 SECONDS (9.7-12.2)
[2018-04-10 22:36] LABS: ABG ALLEN TEST PO; ARTERIAL BLOOD GAS HCO3 23.1 mmol/L (21-28); ARTERIAL BLOOD GAS O2 SAT 99.1 % (95-98); ARTERIAL BLOOD GAS PCO2 38 mm/Hg (35-45); ARTERIAL BLOOD GAS PH 7.38 (7.35-7.45); ARTERIAL BLOOD GAS PO2 105 mm/Hg (80-100); ARTERIAL BLOOD GAS TCO2 23.7 mmol/L (22-28)
[2018-04-10 22:43] LABS: ALB/GLOB RATIO 1.2 (1.0-2.1); CALCIUM 8.3 mg/dl (8.6-10.4); TROPONIN I 0.027 ng/mL (0.00-0.120)
--- NOTE | 2018-04-10 23:30 | CP.PCM.HP ---
History of Present Illness - History of Present Illness History of Present Illness: CC:"shortness of breath" HPI: 77 year old male with past medical history of CHF, HTN, CAD s/p stent presents to the ED complaining of shortness of breath. Patient states he was recently admitted to the hospital last week for shortness of breath. He states his shortness of breath has been getting worse. His shortness of breath is worse on exertion. He states he can only walk 30 stairs before he is short of breath he previously could walk more. He states he uses 2 pillows to sleep. Currently patient is resting in bed comfortably. He states he has a cough with white phlegm. He also states he has constipation but has been passing gas. About a month ago he travelled to [place] for vacation. He denies of having fever, chills, vision changes, headache, sick contacts, nausea, vomiting , diarrhea, or lower extremity swelling. PMD: Dr. Yang Eap Counselor: Dr. Aguirre Past Medical History: CHF, HTN, CAD s/p stent Past Surgical History: coronary stent x 1 Medications: Flomax .4mg daily; Plavix 75mg daily; Synthroid 50mcg daily; Glimepiride 2mg daily; Aspirin 81mg daily; Lisinopril 20mg daily; Metoprolol Tartrate 50mg bid; Cilostazol 100mg daily Allergy: NKDA Social: Social alcohol consumption - 6 beers during vacation; quit smoking 30 years ago - previously smoked 1ppd for 15 years. Denies illicit drug use; retired - previously worked as a journeyman welder; lives with . Present on Admission - Present on Admission Any Indicators Present on Admission: No Review of Systems - Constitutional Constitutional: absent: Chills, Fever, Headache - EENT Eyes: absent: Blurred Vision Ears: absent: Dizziness - Cardiovascular Cardiovascular: Dyspnea, Dyspnea on Exertion. absent: Chest Pain, Chest Pain with Activity, Palpitations, Pedal Edema - Respiratory Respiratory: Cough, Dyspnea - Gastrointestinal Gastrointestinal: Constipation. absent: Diarrhea, Nausea, Vomiting - Genitourinary Genitourinary: absent: Dysuria - Musculoskeletal Musculoskeletal: absent: Numbness, Tingling - Neurological Neurological: absent: Dizziness, Headaches, Tingling - Endocrine Endocrine: absent: Fatigue, Palpitations Past Patient History - Past Medical History & Family History Past Medical History?: Yes - Past Social History Smoking Status: Former Smoker - CARDIAC Hx Hypercholesterolemia: Yes Hx Hypertension: Yes - PULMONARY Hx Respiratory Disorders: Yes Other/Comment: hx pleural effusion may yrs ago - NEUROLOGICAL Hx Neurological Disorder: No - HEENT Hx HEENT Problems: Yes Hx Cataracts: Yes - RENAL Hx Chronic Kidney Disease: No Hx Kidney Stones: Yes - ENDOCRINE/METABOLIC Hx Hypothyroidism: Yes - HEMATOLOGICAL/ONCOLOGICAL Hx Blood Disorders: No - INTEGUMENTARY Hx Dermatological Problems: No - MUSCULOSKELETAL/RHEUMATOLOGICAL Hx Fractures: Yes (ankle) - GASTROINTESTINAL Hx Gastrointestinal Disorders: No - GENITOURINARY/GYNECOLOGICAL Hx Genitourinary Disorders: Yes Hx Prostate Problems: Yes - PSYCHIATRIC Hx Substance Use: No - SURGICAL HISTORY Hx Surgeries: Yes Hx Cataract Extraction: Yes (right) Hx Cardiac Catheterization: Yes Hx Open Reduction Internal Fixation: Yes (ankle) - ANESTHESIA Hx Anesthesia: Yes Hx Anesthesia Reactions: No Hx Malignant Hyperthermia: No Meds Allergies/Adverse Reactions: Allergies Allergy/AdvReac Type Severity Reaction Status Date / Time No Known Allergies Allergy Verified 04/10/18 21:29 Physical Exam - Constitutional Appears: No Acute Distress, Chronically Ill - Head Exam Head Exam: ATRAUMATIC, NORMAL INSPECTION - Eye Exam Eye Exam: EOMI, Normal appearance, PERRL Pupil Exam: NORMAL ACCOMODATION - ENT Exam ENT Exam: Mucous Membranes Moist - Respiratory Exam Respiratory Exam: Rales (right middle and lower lobes), NORMAL BREATHING PATTERN. absent: Wheezes - Cardiovascular Exam Cardiovascular Exam: REGULAR RHYTHM, +S1, +S2. absent: JVD - GI/Abdominal Exam GI & Abdominal Exam: Distended, Normal Bowel Sounds, Soft. absent: Tenderness - Extremities Exam Extremities exam: Positive for: normal capillary refill, normal inspection, pedal pulses present. Negative for: pedal edema, tenderness - Neurological Exam Neurological exam: Alert, Oriented x3 Results - Vital Signs Recent Vital Signs: Last Vital Signs Temp 99.5 F 04/10/18 22:00 Pulse 64 04/10/18 22:00 Resp 18 04/10/18 22:00 BP 184/78 H 04/10/18 22:00 Pulse Ox 95 04/10/18 23:11 - Labs Result Diagrams: 04/10/18 22:12 04/10/18 22:12 Labs: Laboratory Results - last 24 hr 04/10/18 04/10/18 04/10/18 22:12 22:12 22:12 WBC 8.7 RBC 4.25 L Hgb 13.3 Hct 39.5 MCV 92.9 MCH 31.3 H MCHC 33.7 RDW 15.8 H Plt Count 338 MPV 8.9 Neut % (Auto) 60.4 Lymph % (Auto) 18.7 L [place] % (Auto) 9.2 Eos % (Auto) 9.3 H Baso % (Auto) 2.4 H Neut # (Auto) 5.3 Lymph # (Auto) 1.6 [place] # (Auto) 0.8 Eos # (Auto) 0.8 H Baso # (Auto) 0.2 PT 12.2 INR 1.1 APTT 37 H Puncture Site pCO2 pO2 HCO3 ABG pH ABG Total CO2 ABG O2 Saturation ABG Base Excess Jean-Pierre Test ABG Potassium A-a O2 Difference Respiratory Index Glucose Lactate Liter Flow FiO2 Sodium 143 Potassium 4.4 Chloride 106 Carbon Dioxide 27 Anion Gap 15 BUN 18 Creatinine 1.8 H Est GFR ( Amer) 44 Est GFR (Non-Af Amer) 37 POC Glucose (mg/dL) Random Glucose 83 Calcium 8.3 L Magnesium 2.3 Total Bilirubin 0.7 AST 28 ALT 26 Alkaline Phosphatase 90 Troponin I 0.0270 NT-Pro-B Natriuret Pep 2140 H Total Protein 7.3 Albumin 4.0 Globulin 3.4 Albumin/Globulin Ratio 1.2 Arterial Blood Potassium 04/10/18 04/10/18 22:34 22:39 WBC RBC Hgb Hct MCV MCH MCHC RDW Plt Count MPV Neut % (Auto) Lymph % (Auto) [place] % (Auto) Eos % (Auto) Baso % (Auto) Neut # (Auto) Lymph # (Auto) [place] # (Auto) Eos # (Auto) Baso # (Auto) PT INR APTT Puncture Site Rr pCO2 38 pO2 105 H HCO3 23.1 ABG pH 7.38 ABG Total CO2 23.7 ABG O2 Saturation 99.1 H ABG Base Excess -2.3 L Jean-Pierre Test Po ABG Potassium 3.1 L A-a O2 Difference 61.0 Respiratory Index 0.6 Glucose 67 L Lactate 0.7 Liter Flow 2.5 FiO2 30.0 Sodium 144.0 Potassium Chloride 114.0 H Carbon Dioxide Anion Gap BUN Creatinine Est GFR ( Amer) Est GFR (Non-Af Amer) POC Glucose (mg/dL) 84 Random Glucose Calcium Magnesium Total Bilirubin AST ALT Alkaline Phosphatase Troponin I NT-Pro-B Natriuret Pep Total Protein Albumin Globulin Albumin/Globulin Ratio Arterial Blood Potassium 3.1 L Assessment & Plan - Assessment and Plan (Free Text) Assessment: Dyspnea secondary to Acute diastolic heart failure exacerbation -Troponin negative x1 f/u trop x2 -BNP 2140 -EKG normal sinus rhythm at 70bpm, no axis deviation, no acute ST changes - Medications: * Lasix 40mg IV bid * Metoprolol 50mg BID * ASA 81mg - f/u chest x-ray - Echo (04/01/18): EF 69%; mild pulmonary hypertension; please see full report - Cardiology consulted, Dr. Aguirre help appreciated - Daily weight - Input & output - HOB 30 degree History of HTN -Lisinopril 20mg -Metoprolol 50mg BID History of CAD -ASA 81mg -Plavix 75mg -Metoprolol 50mg BID - Lipid Panel (04/01/18): Triglycerides 218; LDL 109; HDL 42; Total Cholesterol 193 - f/u hA1c History of PVD - Cilostazol 100mg po History of BPH - Flomax 0.4mg Prophylaxis - heparin sc q8h - SCDs - Heart Healthy/2g Na diet - PT eval and Treat Case discussed with Dr. Trey Rod PGY-2
[2018-04-10] MEDS ORDERED: Bisacodyl 5mg EC Tab PO ONE (23:56)
[2018-04-11 03:03] LABS: CK-MB 0.96 ng/mL (0.0-3.38); TROPONIN I 0.029 ng/mL (0.00-0.120)
[2018-04-11] MEDS ORDERED: Levothyroxine 50 MCG TAB PO SCH (06:30)
[2018-04-11 06:33] LABS: BASO % 0.2 % (0.0-2.0); EOS # 0.7 K/uL (0.0-0.7); EOS % 8.1 % (0.0-4.0); HEMOGLOBIN 12.6 g/dL (12.0-18.0); LYMPH % 12.2 % (20.0-40.0); MEAN CELL VOLUME 93.5 fL (80.0-94.0); MEAN CORPUSCULAR HEMOGLOBIN 31.8 pg (27.0-31.0); MEAN PLATELET VOLUME 8.8 fL (7.2-11.7); MONO # 0.7 K/uL (0.0-0.8); MONO % 8.6 % (0.0-10.0); NEUT # 5.8 K/uL (1.8-7.0); NEUT % 70.9 % (50.0-75.0); RBC 3.97 Mil/uL (4.40-5.90); WHITE BLOOD COUNT 8.2 K/uL (4.8-10.8)
[2018-04-11 06:46] LABS: ALB/GLOB RATIO 1.1 (1.0-2.1); ALBUMIN 3.5 g/dL (3.5-5.0)
--- NOTE | 2018-04-11 07:37 | CP.PCM.PN ---
<Tj Flores - Last Filed: 04/11/18 16:08> Subjective - Date & Time of Evaluation Date of Evaluation: 04/11/18 Time of Evaluation: 07:29 - Subjective Subjective: PGY-[address] Yang. No acute events noted overnight. Patient stated he felt better today. His breathing had improved. He denied chest pain, abdominal pain, fevers, nausea, abnormal bowel movements. Objective - Vital Signs/Intake and Output Vital Signs (last 24 hours): Temp Pulse Resp BP Pulse Ox 98.2 F 58 L 14 171/87 H 97 04/11/18 02:50 04/11/18 05:48 04/11/18 05:48 04/11/18 05:48 04/11/18 05:48 - Medications Medications: Current Medications Aspirin (Ecotrin) 81 mg PO DAILY [facility] Cilostazol (Pletal) 100 mg PO DAILY [facility] Clopidogrel Bisulfate (Plavix) 75 mg PO DAILY [facility] Furosemide (Lasix) 40 mg IVP Q12H [facility] Heparin Sodium (Porcine) (Heparin) 5,000 units SC Q8 [facility] Levothyroxine Sodium (Synthroid) 50 mcg PO DAILY@0630 [facility] Lisinopril (Zestril) 20 mg PO DAILY [facility] Metoprolol Tartrate (Lopressor) 50 mg PO BID [facility] Tamsulosin HCl (Flomax) 0.4 mg PO DAILY [facility] - Labs Labs: 04/11/18 06:23 04/11/18 06:23 PT 12.2 SECONDS (9.7-12.2) 04/10/18 22:12 INR 1.1 04/10/18 22:12 APTT 37 SECONDS (21-34) H 04/10/18 22:12 - Additional Findings Additional findings: - Constitutional Appears: No Acute Distress, Chronically Ill - Head Exam Head Exam: ATRAUMATIC, NORMAL INSPECTION - Eye Exam Eye Exam: EOMI, Normal appearance, PERRL Pupil Exam: NORMAL ACCOMODATION - ENT Exam ENT Exam: Mucous Membranes Moist - Respiratory Exam Respiratory Exam: Rales (right middle and lower lobes), NORMAL BREATHING PATTERN. absent: Wheezes - Cardiovascular Exam Cardiovascular Exam: REGULAR RHYTHM, +S1, +S2. absent: JVD - GI/Abdominal Exam GI & Abdominal Exam: Distended, Normal Bowel Sounds, Soft. absent: Tenderness - Extremities Exam Extremities exam: Positive for: normal capillary refill, normal inspection, pedal pulses present. Negative for: pedal edema, tenderness - Neurological Exam Neurological exam: Alert, Oriented x3 Assessment and Plan - Assessment and Plan (Free Text) Assessment: Dyspnea secondary to Acute diastolic heart failure exacerbation -Troponin negative x3 -BNP 2140 -EKG normal sinus rhythm/Bradycardia at 50bpm, no axis deviation, no acute ST changes - Medications: * Lasix 40mg IV bid * Metoprolol Tartrate 50mg BID * ASA 81mg - ABG: pH 7.38; CO2 38; pO2 105: HCO3 23.1 - chest x-ray 04/10: No significant interval change compared to the prior examination(s). - Echo (04/01/18): EF 69%; mild pulmonary hypertension; please see full report - Cardiology consulted, Dr. Aguirre help appreciated * Cardiac cath 04/12, NPO after midnight - Daily weight - Input & output - HOB 30 degree History of HTN - Lisinopril 20mg - Metoprolol Tartrate 50mg PO BID History of CAD - ASA 81mg - Plavix 75mg - Metoprolol Tartrate 50mg BID - Lipid Panel (04/01/18): Triglycerides 218; LDL 109; HDL 42; Total Cholesterol 193 - hA1c 6.8 DM2 - hA1c 6.8 - glucose normal - start metformin upon discharge Acute Kidney Injury - BUN/Cr: 18/1.8 - Continue to monitor History of PVD - Cilostazol 100mg po History of BPH - Flomax 0.4mg Prophylaxis - heparin sc q8h - SCDs - Heart Healthy/2g Na diet - PT eval and Treat Case discussed with Dr. Trey Flores PGY-2 <Kian Yang Jr. - Last Filed: 04/12/18 16:16> Objective - Vital Signs/Intake and Output Vital Signs (last 24 hours): Temp Pulse Resp BP Pulse Ox 99.6 F 65 20 175/84 H 96 04/12/18 07:00 04/12/18 14:59 04/12/18 07:00 04/12/18 07:00 04/12/18 14:59 - Medications Medications: Current Medications Amlodipine Besylate (Norvasc) 5 mg PO DAILY [facility] Aspirin (Ecotrin) 81 mg PO DAILY [facility] Last Admin: 04/12/18 09:44 Dose: 81 mg Cilostazol (Pletal) 100 mg PO DAILY [facility] Last Admin: 04/12/18 09:44 Dose: 100 mg Clopidogrel Bisulfate (Plavix) 75 mg PO DAILY [facility] Last Admin: 04/12/18 09:44 Dose: 75 mg Heparin Sodium (Porcine) (Heparin) 5,000 units SC Q8 [facility] Last Admin: 04/12/18 13:33 Dose: 5,000 units Sodium Chloride (Sodium Chloride 0.45%) 1,000 mls @ 60 mls/hr IV .[id number] [facility] Stop: 04/12/18 19:00 Last Admin: 04/12/18 09:50 Dose: 60 mls/hr Levothyroxine Sodium (Synthroid) 50 mcg PO DAILY@0630 [facility] Lisinopril (Zestril) 20 mg PO DAILY [facility] Last Admin: 04/12/18 09:44 Dose: 20 mg Metoprolol Tartrate (Lopressor) 50 mg PO BID [facility] Last Admin: 04/12/18 09:44 Dose: 50 mg Tamsulosin HCl (Flomax) 0.4 mg PO DAILY [facility] Last Admin: 04/12/18 09:44 Dose: 0.4 mg - Labs Labs: 04/12/18 08:22 04/12/18 08:22 PT 12.2 SECONDS (9.7-12.2) 04/10/18 22:12 INR 1.1 04/10/18 22:12 APTT 37 SECONDS (21-34) H 04/10/18 22:12 Attending/Attestation - Attestation I have personally seen and examined this patient.: Yes I have fully participated in the care of the patient.: Yes I have reviewed all pertinent clinical information, including history, physical exam and plan: Yes Notes (Text): 04/12/18 16:16 Agree with resident note and plan of care
[2018-04-11 09:33] LABS: CK-MB 1.15 ng/mL (0.0-3.38); TROPONIN I 0.026 ng/mL (0.00-0.120)
[2018-04-11] MEDS: Cilostazol 100 mg Tab UD PO SCH (09:34)
--- NOTE | 2018-04-11 10:58 | RAD ---
PROCEDURE: CHEST RADIOGRAPH, 1 VIEW HISTORY: SOB COMPARISON: 04/01/2018 two-view chest 12/10/2011 single-view chest FINDINGS: LUNGS: Chronic findings right lower lobe. PLEURA: Partially loculated right pleural effusion. CARDIOVASCULAR: No radiographic findings to suggest acute or significant cardiovascular disease. OSSEOUS STRUCTURES: No significant abnormalities. VISUALIZED UPPER ABDOMEN: Normal. OTHER FINDINGS: None. IMPRESSION: No significant interval change compared to the prior examination(s). Concordant results with the preliminary interpretation rendered by the emergency department physician procedure.
[2018-04-11 12:17] VITALS: RESP 20
[2018-04-11] MEDS ORDERED: Midazolam 2 MG/2 ML VIAL ONE (18:10)
[2018-04-11] MEDS ORDERED: Iodixanol 320 MG/ML 100 ML BOTTLE IV ONE (18:10)
--- NOTE | 2018-04-11 19:01 | CP.PCM.CON ---
History of Present Illness - History of Present Illness History of Present Illness: Patient s/p Cath non Obstructive Coronaries EF 60% medical management for CAD IV hydration d/c lasix for now Monitor BUN/creatinine OOB to chairn after 10pm today Past Patient History - Past Medical History & Family History Past Medical History?: Yes - Past Social History Smoking Status: Never Smoked - CARDIAC Hx Cardiac Disorders: Yes Hx Congestive Heart Failure: Yes Hx Hypercholesterolemia: Yes Hx Hypertension: Yes - PULMONARY Hx Respiratory Disorders: Yes Other/Comment: hx pleural effusion may yrs ago - NEUROLOGICAL Hx Neurological Disorder: No - HEENT Hx HEENT Problems: Yes Hx Cataracts: Yes - RENAL Hx Chronic Kidney Disease: Yes Hx Kidney Stones: Yes - ENDOCRINE/METABOLIC Hx Hypothyroidism: Yes - HEMATOLOGICAL/ONCOLOGICAL Hx Blood Disorders: No - INTEGUMENTARY Hx Dermatological Problems: No - MUSCULOSKELETAL/RHEUMATOLOGICAL Hx Falls: No - GASTROINTESTINAL Hx Gastrointestinal Disorders: No - GENITOURINARY/GYNECOLOGICAL Hx Genitourinary Disorders: Yes Hx Prostate Problems: Yes - PSYCHIATRIC Hx Psychophysiologic Disorder: No Hx Substance Use: No - SURGICAL HISTORY Hx Surgeries: Yes Hx Cataract Extraction: Yes (right) Hx Cardiac Catheterization: Yes Hx Open Reduction Internal Fixation: Yes (ankle) - ANESTHESIA Hx Anesthesia: Yes Hx Anesthesia Reactions: No Hx Malignant Hyperthermia: No Has any member of the family had a problem w/ anesthesia?: No Meds Allergies/Adverse Reactions: Allergies Allergy/AdvReac Type Severity Reaction Status Date / Time No Known Allergies Allergy Verified 04/10/18 21:29 - Medications Medications: Current Medications Aspirin (Ecotrin) 81 mg PO DAILY [facility] Last Admin: 04/11/18 09:33 Dose: 81 mg Cilostazol (Pletal) 100 mg PO DAILY [facility] Last Admin: 04/11/18 09:34 Dose: 100 mg Clopidogrel Bisulfate (Plavix) 75 mg PO DAILY [facility] Last Admin: 04/11/18 09:34 Dose: 75 mg Heparin Sodium (Porcine) (Heparin) 5,000 units SC Q8 [facility] Last Admin: 04/11/18 13:57 Dose: 5,000 units Sodium Chloride (Sodium Chloride 0.45%) 1,000 mls @ 60 mls/hr IV .[id number] [facility] Stop: 04/12/18 19:00 Levothyroxine Sodium (Synthroid) 50 mcg PO DAILY@0630 [facility] Lisinopril (Zestril) 20 mg PO DAILY [facility] Last Admin: 04/11/18 09:34 Dose: 20 mg Metoprolol Tartrate (Lopressor) 50 mg PO BID [facility] Last Admin: 04/11/18 09:39 Dose: Not Given Tamsulosin HCl (Flomax) 0.4 mg PO DAILY [facility] Last Admin: 04/11/18 09:34 Dose: 0.4 mg Results - Vital Signs Recent Vital Signs: Last Vital Signs Temp 97.5 F L 04/11/18 15:59 Pulse 54 L 04/11/18 15:59 Resp 20 04/11/18 15:59 BP 170/79 H 04/11/18 15:59 Pulse Ox 96 04/11/18 15:59 - Labs Result Diagrams: 04/11/18 06:23 04/11/18 06:23 Labs: Laboratory Results - last 24 hr 04/10/18 04/10/18 04/10/18 22:12 22:12 22:12 WBC 8.7 RBC 4.25 L Hgb 13.3 Hct 39.5 MCV 92.9 MCH 31.3 H MCHC 33.7 RDW 15.8 H Plt Count 338 MPV 8.9 Neut % (Auto) 60.4 Lymph % (Auto) 18.7 L [facility] % (Auto) 9.2 Eos % (Auto) 9.3 H Baso % (Auto) 2.4 H Neut # (Auto) 5.3 Lymph # (Auto) 1.6 [facility] # (Auto) 0.8 Eos # (Auto) 0.8 H Baso # (Auto) 0.2 PT 12.2 INR 1.1 APTT 37 H Puncture Site pCO2 pO2 HCO3 ABG pH ABG Total CO2 ABG O2 Saturation ABG Base Excess Jean-Pierre Test ABG Potassium A-a O2 Difference Respiratory Index Glucose Lactate Liter Flow FiO2 Sodium 143 Potassium 4.4 Chloride 106 Carbon Dioxide 27 Anion Gap 15 BUN 18 Creatinine 1.8 H Est GFR ( Amer) 44 Est GFR (Non-Af Amer) 37 POC Glucose (mg/dL) Random Glucose 83 Hemoglobin A1c Calcium 8.3 L Phosphorus Magnesium 2.3 Total Bilirubin 0.7 AST 28 ALT 26 Alkaline Phosphatase 90 Total Creatine Kinase CK-MB (Mass) Troponin I 0.0270 NT-Pro-B Natriuret Pep 2140 H Total Protein 7.3 Albumin 4.0 Globulin 3.4 Albumin/Globulin Ratio 1.2 Arterial Blood Potassium 04/10/18 04/10/18 04/11/18 22:34 22:39 02:36 WBC RBC Hgb Hct MCV MCH MCHC RDW Plt Count MPV Neut % (Auto) Lymph % (Auto) [facility] % (Auto) Eos % (Auto) Baso % (Auto) Neut # (Auto) Lymph # (Auto) [facility] # (Auto) Eos # (Auto) Baso # (Auto) PT INR APTT Puncture Site Rr pCO2 38 pO2 105 H HCO3 23.1 ABG pH 7.38 ABG Total CO2 23.7 ABG O2 Saturation 99.1 H ABG Base Excess -2.3 L Jean-Pierre Test Po ABG Potassium 3.1 L A-a O2 Difference 61.0 Respiratory Index 0.6 Glucose 67 L Lactate 0.7 Liter Flow 2.5 FiO2 30.0 Sodium 144.0 Potassium Chloride 114.0 H Carbon Dioxide Anion Gap BUN Creatinine Est GFR ( Amer) Est GFR (Non-Af Amer) POC Glucose (mg/dL) 84 Random Glucose Hemoglobin A1c Calcium Phosphorus Magnesium Total Bilirubin AST ALT Alkaline Phosphatase Total Creatine Kinase 84 CK-MB (Mass) 0.96 Troponin I 0.0290 NT-Pro-B Natriuret Pep Total Protein Albumin Globulin Albumin/Globulin Ratio Arterial Blood Potassium 3.1 L 04/11/18 04/11/18 04/11/18 06:23 06:23 06:23 WBC 8.2 RBC 3.97 L Hgb 12.6 Hct 37.1 MCV 93.5 MCH 31.8 H MCHC 34.0 RDW 16.0 H Plt Count 300 MPV 8.8 Neut % (Auto) 70.9 Lymph % (Auto) 12.2 L [facility] % (Auto) 8.6 Eos % (Auto) 8.1 H Baso % (Auto) 0.2 Neut # (Auto) 5.8 Lymph # (Auto) 1.0 [facility] # (Auto) 0.7 Eos # (Auto) 0.7 Baso # (Auto) 0.0 PT INR APTT Puncture Site pCO2 pO2 HCO3 ABG pH ABG Total CO2 ABG O2 Saturation ABG Base Excess Jean-Pierre Test ABG Potassium A-a O2 Difference Respiratory Index Glucose Lactate Liter Flow FiO2 Sodium 142 Potassium 4.3 Chloride 108 H Carbon Dioxide 28 Anion Gap 12 BUN 20 Creatinine 1.8 H Est GFR ( Amer) 44 Est GFR (Non-Af Amer) 37 POC Glucose (mg/dL) Random Glucose 86 Hemoglobin A1c 6.8 H Calcium 8.0 L Phosphorus 3.4 Magnesium 2.2 Total Bilirubin 0.7 AST 19 ALT 24 Alkaline Phosphatase 71 Total Creatine Kinase CK-MB (Mass) Troponin I NT-Pro-B Natriuret Pep Total Protein 6.7 Albumin 3.5 Globulin 3.1 Albumin/Globulin Ratio 1.1 Arterial Blood Potassium 04/11/18 09:02 WBC RBC Hgb Hct MCV MCH MCHC RDW Plt Count MPV Neut % (Auto) Lymph % (Auto) [facility] % (Auto) Eos % (Auto) Baso % (Auto) Neut # (Auto) Lymph # (Auto) [facility] # (Auto) Eos # (Auto) Baso # (Auto) PT INR APTT Puncture Site pCO2 pO2 HCO3 ABG pH ABG Total CO2 ABG O2 Saturation ABG Base Excess Jean-Pierre Test ABG Potassium A-a O2 Difference Respiratory Index Glucose Lactate Liter Flow FiO2 Sodium Potassium Chloride Carbon Dioxide Anion Gap BUN Creatinine Est GFR ( Amer) Est GFR (Non-Af Amer) POC Glucose (mg/dL) Random Glucose Hemoglobin A1c Calcium Phosphorus Magnesium Total Bilirubin AST ALT Alkaline Phosphatase Total Creatine Kinase 58 CK-MB (Mass) 1.15 Troponin I 0.0260 NT-Pro-B Natriuret Pep Total Protein Albumin Globulin Albumin/Globulin Ratio Arterial Blood Potassium
--- NOTE | 2018-04-11 19:37 | CARD ---
APPROVED REPORT EKG Measurement Heart [id number] <Conclusion> Sinus bradycardia Otherwise normal ECG
--- NOTE | 2018-04-12 07:37 | CP.PCM.PN ---
Subjective - Date & Time of Evaluation Date of Evaluation: 04/12/18 Time of Evaluation: 07:33 - Subjective Subjective: PGY-[address] Yang. No acute events noted overnight. Patient had cath yesterday which showed non- obstructive coronaries. Objective - Vital Signs/Intake and Output Vital Signs (last 24 hours): Temp Pulse Resp BP Pulse Ox 98.0 F 67 20 155/72 H 97 04/11/18 23:50 04/11/18 23:50 04/11/18 23:50 04/11/18 23:50 04/11/18 23:50 - Medications Medications: Current Medications Aspirin (Ecotrin) 81 mg PO DAILY [facility] Last Admin: 04/11/18 09:33 Dose: 81 mg Cilostazol (Pletal) 100 mg PO DAILY [facility] Last Admin: 04/11/18 09:34 Dose: 100 mg Clopidogrel Bisulfate (Plavix) 75 mg PO DAILY [facility] Last Admin: 04/11/18 09:34 Dose: 75 mg Heparin Sodium (Porcine) (Heparin) 5,000 units SC Q8 [facility] Last Admin: 04/11/18 22:42 Dose: Not Given Sodium Chloride (Sodium Chloride 0.45%) 1,000 mls @ 60 mls/hr IV .[id number] [facility] Stop: 04/12/18 19:00 Levothyroxine Sodium (Synthroid) 50 mcg PO DAILY@0630 [facility] Lisinopril (Zestril) 20 mg PO DAILY [facility] Last Admin: 04/11/18 09:34 Dose: 20 mg Metoprolol Tartrate (Lopressor) 50 mg PO BID [facility] Last Admin: 04/11/18 19:22 Dose: Not Given Tamsulosin HCl (Flomax) 0.4 mg PO DAILY [facility] Last Admin: 04/11/18 09:34 Dose: 0.4 mg - Labs Labs: 04/11/18 06:23 04/11/18 06:23 PT 12.2 SECONDS (9.7-12.2) 04/10/18 22:12 INR 1.1 04/10/18 22:12 APTT 37 SECONDS (21-34) H 04/10/18 22:12 - Additional Findings Additional findings: - Constitutional Appears: No Acute Distress, Chronically Ill - Head Exam Head Exam: ATRAUMATIC, NORMAL INSPECTION - Eye Exam Eye Exam: EOMI, Normal appearance, PERRL Pupil Exam: NORMAL ACCOMODATION - ENT Exam ENT Exam: Mucous Membranes Moist - Respiratory Exam Respiratory Exam: Rales (right middle and lower lobes), NORMAL BREATHING PATTERN. absent: Wheezes - Cardiovascular Exam Cardiovascular Exam: REGULAR RHYTHM, +S1, +S2. absent: JVD - GI/Abdominal Exam GI & Abdominal Exam: Distended, Normal Bowel Sounds, Soft. absent: Tenderness - Extremities Exam Extremities exam: Positive for: normal capillary refill, normal inspection, pedal pulses present. Negative for: pedal edema, tenderness - Neurological Exam Neurological exam: Alert, Oriented x3 Assessment and Plan - Assessment and Plan (Free Text) Assessment: Dyspnea secondary to Acute diastolic heart failure exacerbation -Troponin negative x3 -BNP 2140 -EKG normal sinus rhythm/Bradycardia at 50bpm, no axis deviation, no acute ST changes - Medications: * Lasix 40mg IV bid - discontinued 04/11 * Metoprolol Tartrate 50mg BID * ASA 81mg - ABG: pH 7.38; CO2 38; pO2 105: HCO3 23.1 - chest x-ray 04/10: No significant interval change compared to the prior examination(s). - Echo (04/01/18): EF 69%; mild pulmonary hypertension; please see full report - Cardiology consulted, Dr. Aguirre help appreciated * Cardiac cath 04/11, non Obstructive Coronaries, EF 60%, medical management for CAD - Daily weight - Input & output - HOB 30 degree History of HTN - Lisinopril 20mg - Metoprolol Tartrate 50mg PO BID - Lasix 40mg IV bid - discontinued 04/11 History of CAD - ASA 81mg - Plavix 75mg - Metoprolol Tartrate 50mg BID - Lipid Panel (04/01/18): Triglycerides 218; LDL 109; HDL 42; Total Cholesterol 193 - hA1c 6.8 - Cardiology consulted, Dr. Aguirre help appreciated * Cardiac cath 04/11, non Obstructive Coronaries, EF 60%, medical management for CAD DM2 - hA1c 6.8 - glucose normal - start metformin upon discharge Acute Kidney Injury - BUN/Cr: 18/1.8 - Continue to monitor History of PVD - Cilostazol 100mg po History of BPH - Flomax 0.4mg Prophylaxis - heparin sc q8h - SCDs - Heart Healthy/2g Na diet - PT eval and Treat Case discussed with Dr. Trey Flores PGY-2
[2018-04-12 08:40] LABS: BASO # 0.1 K/uL (0.0-0.2); BASO % 1.3 % (0.0-2.0); EOS # 0.5 K/uL (0.0-0.7); EOS % 6.6 % (0.0-4.0); HEMOGLOBIN 12.9 g/dL (12.0-18.0); LYMPH # 0.8 K/uL (1.0-4.3); LYMPH % 11.4 % (20.0-40.0); MEAN CORPUSCULAR HEMOGLOBIN 31.9 pg (27.0-31.0); MEAN CORPUSCULAR HGB CONC 34.9 g/dL (33.0-37.0); MEAN PLATELET VOLUME 8.8 fL (7.2-11.7); MONO # 0.5 K/uL (0.0-0.8); MONO % 7.6 % (0.0-10.0); NEUT # 5.1 K/uL (1.8-7.0); NEUT % 73.1 % (50.0-75.0); RBC 4.04 Mil/uL (4.40-5.90); RED CELL DISTRIBUTION WIDTH 15.7 % (11.5-14.5)
[2018-04-12 08:42] LABS: MEAN CELL VOLUME 91.5 fL (80.0-94.0)
[2018-04-12 08:56] LABS: ALB/GLOB RATIO 1.1 (1.0-2.1); ALBUMIN 3.4 g/dL (3.5-5.0)
[2018-04-12] MEDS: Cilostazol 100 mg Tab UD PO SCH (09:44)
[2018-04-12] MEDS: Sodium Chloride 0.45% 1,000 ML IV SCH ×2 (09:50→11:45)
--- NOTE | 2018-04-12 16:09 | CP.PCM.DIS ---
Provider - Provider Date of Admission: 04/10/18 23:06 Attending physician: Kian Yang Jr, MD Primary care physician: PMD: Dr Yang Consults: Cardio: Dr Yang Time Spent in preparation of Discharge (in minutes): 44 Diagnosis - Discharge Diagnosis (1) CHF (congestive heart failure) Status: Resolved Priority: High Hospital Course - Lab Results Lab Results: Micro Results 04/11/18 01:44 Blood Blood Culture - Preliminary NO GROWTH AFTER 24 HOURS 04/11/18 01:42 Blood Blood Culture - Preliminary NO GROWTH AFTER 24 HOURS Most Recent Lab Values WBC 7.0 K/uL (4.8-10.8) 04/12/18 08:22 RBC 4.04 Mil/uL (4.40-5.90) L 04/12/18 08:22 Hgb 12.9 g/dL (12.0-18.0) 04/12/18 08:22 Hct 37.0 % (35.0-51.0) 04/12/18 08:22 MCV 91.5 fL (80.0-94.0) D 04/12/18 08:22 MCH 31.9 pg (27.0-31.0) H 04/12/18 08:22 MCHC 34.9 g/dL (33.0-37.0) 04/12/18 08:22 RDW 15.7 % (11.5-14.5) H 04/12/18 08:22 Plt Count 291 K/uL (130-400) 04/12/18 08:22 MPV 8.8 fL (7.2-11.7) 04/12/18 08:22 Neut % (Auto) 73.1 % (50.0-75.0) 04/12/18 08:22 Lymph % (Auto) 11.4 % (20.0-40.0) L 04/12/18 08:22 Mckenzie % (Auto) 7.6 % (0.0-10.0) 04/12/18 08:22 Eos % (Auto) 6.6 % (0.0-4.0) H 04/12/18 08:22 Baso % (Auto) 1.3 % (0.0-2.0) 04/12/18 08:22 Neut # (Auto) 5.1 K/uL (1.8-7.0) 04/12/18 08:22 Lymph # (Auto) 0.8 K/uL (1.0-4.3) L 04/12/18 08:22 Mckenzie # (Auto) 0.5 K/uL (0.0-0.8) 04/12/18 08:22 Eos # (Auto) 0.5 K/uL (0.0-0.7) 04/12/18 08:22 Baso # (Auto) 0.1 K/uL (0.0-0.2) 04/12/18 08:22 PT 12.2 SECONDS (9.7-12.2) 04/10/18 22:12 INR 1.1 04/10/18 22:12 APTT 37 SECONDS (21-34) H 04/10/18 22:12 Puncture Site Rr 04/10/18 22:34 pCO2 38 mm/Hg (35-45) 04/10/18 22:34 pO2 105 mm/Hg (80-100) H 04/10/18 22:34 HCO3 23.1 mmol/L (21-28) 04/10/18 22:34 ABG pH 7.38 (7.35-7.45) 04/10/18 22:34 ABG Total CO2 23.7 mmol/L (22-28) 04/10/18 22:34 ABG O2 Saturation 99.1 % (95-98) H 04/10/18 22:34 ABG Base Excess -2.3 mmol/L (-2.0-3.0) L 04/10/18 22:34 Jean-Pierre Test Po 04/10/18 22:34 ABG Potassium 3.1 mmol/L (3.6-5.2) L 04/10/18 22:34 A-a O2 Difference 61.0 mm/Hg 04/10/18 22:34 Respiratory Index 0.6 04/10/18 22:34 Sodium 144.0 mmol/l (132-148) 04/10/18 22:34 Chloride 114.0 mmol/L (98-107) H 04/10/18 22:34 Glucose 67 mg/dl (75-110) L 04/10/18 22:34 Lactate 0.7 mmol/L (0.7-2.1) 04/10/18 22:34 Liter Flow 2.5 04/10/18 22:34 FiO2 30.0 % 04/10/18 22:34 Sodium 141 mmol/L (132-148) 04/12/18 08:22 Potassium 3.9 mmol/L (3.6-5.2) 04/12/18 08:22 Chloride 104 mmol/L (98-107) 04/12/18 08:22 Carbon Dioxide 27 mmol/L (22-30) 04/12/18 08:22 Anion Gap 13 (10-20) 04/12/18 08:22 BUN 22 mg/dL (9-20) H 04/12/18 08:22 Creatinine 1.8 mg/dL (0.8-1.5) H 04/12/18 08:22 Est GFR ( Amer) 44 04/12/18 08:22 Est GFR (Non-Af Amer) 37 04/12/18 08:22 POC Glucose (mg/dL) 84 mg/dL (65-110) 04/10/18 22:39 Random Glucose 104 mg/dL (75-110) 04/12/18 08:22 Hemoglobin A1c 6.8 % (4.2-6.5) H 04/11/18 06:23 Calcium 8.0 mg/dl (8.6-10.4) L 04/12/18 08:22 Phosphorus 3.4 mg/dL (2.5-4.5) 04/11/18 06:23 Magnesium 2.2 mg/dL (1.6-2.3) 04/11/18 06:23 Total Bilirubin 0.7 mg/dL (0.2-1.3) 04/12/18 08:22 AST 21 U/L (17-59) 04/12/18 08:22 ALT 23 U/L (21-72) 04/12/18 08:22 Alkaline Phosphatase 87 U/L (38-126) 04/12/18 08:22 Total Creatine Kinase 58 U/L (55-170) 04/11/18 09:02 CK-MB (Mass) 1.15 ng/mL (0.0-3.38) 04/11/18 09:02 Troponin I 0.0260 ng/mL (0.00-0.120) 04/11/18 09:02 NT-Pro-B Natriuret Pep 2140 pg/mL (0-900) H 04/10/18 22:12 Total Protein 6.4 g/dL (6.3-8.3) 04/12/18 08:22 Albumin 3.4 g/dL (3.5-5.0) L 04/12/18 08:22 Globulin 3.0 gm/dL (2.2-3.9) 04/12/18 08:22 Albumin/Globulin Ratio 1.1 (1.0-2.1) 04/12/18 08:22 Arterial Blood Potassium 3.1 mmol/L (3.6-5.2) L 04/10/18 22:34 - Hospital Course Hospital Course: CC:"shortness of breath" HPI: 77 year old male with past medical history of CHF, HTN, CAD s/p stent presents to the ED complaining of shortness of breath. Patient states he was recently admitted to the hospital last week for shortness of breath. He states his shortness of breath has been getting worse. His shortness of breath is worse on exertion. He states he can only walk 30 stairs before he is short of breath he previously could walk more. He states he uses 2 pillows to sleep. Currently patient is resting in bed comfortably. He states he has a cough with white phlegm. He also states he has constipation but has been passing gas. About a month ago he travelled to [place] for vacation. He denies of having fever, chills, vision changes, headache, sick contacts, nausea, vomiting , diarrhea, or lower extremity swelling. PMD: Dr. Yang Project Facilitator: Dr. Aguirre Past Medical History: CHF, HTN, CAD s/p stent Past Surgical History: coronary stent x 1 Medications: Flomax .4mg daily; Plavix 75mg daily; Synthroid 50mcg daily; Glimepiride 2mg daily; Aspirin 81mg daily; Lisinopril 20mg daily; Metoprolol Tartrate 50mg bid; Cilostazol 100mg daily Allergy: NKDA Social: Social alcohol consumption - 6 beers during vacation; quit smoking 30 years ago - previously smoked 1ppd for 15 years. Denies illicit drug use; retired - previously worked as a welder apprentice arc; lives with . HOSPITAL COURSE: Mr Kaye was diagnosed with an acute exacerbation of diastolic CHF. He was given lasix 40mg iv bid which improved his symptoms. Cardiology was consulted, Dr Aguirre who performed a catheterization (cardiac) on 04/11 and found non- obstructive coronaries with an EF 60% and recommended medical management. His BP was elevated thus a 3rd agent was added to his regiment, his regimen now is lopressor 50mg bid, lisinopril 20mg qd and norvasc 5mg qd. His Cr was elevated due to cardiorenal syndrome and him receiving dye for the cardiac cath also caused his Cr to remain elevated at 1.8. Attending Dr Yang felt safe letting him go home and the pateint was told to drink plenty of water in the next few days (he had no urinary symptoms). Please see the latest A/P for specifics on management: Dyspnea secondary to Acute diastolic heart failure exacerbation -Troponin negative x3 -BNP 2140 -EKG normal sinus rhythm/Bradycardia at 50bpm, no axis deviation, no acute ST changes - Medications: * Lasix 40mg IV bid - discontinued 04/11 * Metoprolol Tartrate 50mg BID * ASA 81mg - ABG: pH 7.38; CO2 38; pO2 105: HCO3 23.1 - chest x-ray 04/10: No significant interval change compared to the prior examination(s). - Echo (04/01/18): EF 69%; mild pulmonary hypertension; please see full report - Cardiology consulted, Dr. Aguirre help appreciated * Cardiac cath 04/11, non Obstructive Coronaries, EF 60%, medical management for CAD - Daily weight - Input & output - HOB 30 degree History of HTN - Lisinopril 20mg - Metoprolol Tartrate 50mg PO BID - Lasix 40mg IV bid - discontinued 04/11 History of CAD - ASA 81mg - Plavix 75mg - Metoprolol Tartrate 50mg BID - Lipid Panel (04/01/18): Triglycerides 218; LDL 109; HDL 42; Total Cholesterol 193 - hA1c 6.8 - Cardiology consulted, Dr. Aguirre help appreciated * Cardiac cath 04/11, non Obstructive Coronaries, EF 60%, medical management for CAD DM2 - hA1c 6.8 - glucose normal - start metformin upon discharge Acute Kidney Injury - BUN/Cr: 18/1.8 - Continue to monitor History of PVD - Cilostazol 100mg po History of BPH - Flomax 0.4mg Prophylaxis - heparin sc q8h - SCDs - Heart Healthy/2g Na diet - PT eval and Treat Discharge Exam - Head Exam Head Exam: ATRAUMATIC, NORMAL INSPECTION - Additional Findings Additional findings: - Constitutional Appears: No Acute Distress, Chronically Ill - Head Exam Head Exam: ATRAUMATIC, NORMAL INSPECTION - Eye Exam Eye Exam: EOMI, Normal appearance, PERRL Pupil Exam: NORMAL ACCOMODATION - ENT Exam ENT Exam: Mucous Membranes Moist - Respiratory Exam Respiratory Exam: Rales (right middle and lower lobes) much improved from admission, NORMAL BREATHING PATTERN. absent: Wheezes - Cardiovascular Exam Cardiovascular Exam: REGULAR RHYTHM, +S1, +S2. absent: JVD - GI/Abdominal Exam GI & Abdominal Exam: Distended, Normal Bowel Sounds, Soft. absent: Tenderness - Extremities Exam Extremities exam: Positive for: normal capillary refill, normal inspection, pedal pulses present. Negative for: pedal edema, tenderness - Neurological Exam Neurological exam: Alert, Oriented x3 Discharge Plan - Discharge Medications Prescriptions: amLODIPine [Norvasc] 5 mg PO DAILY #30 tab Aspirin [Ecotrin] 81 mg PO DAILY #30 tabec Cilostazol [Pletal] 100 mg PO DAILY #30 tab Clopidogrel [Plavix] 75 mg PO DAILY #30 tab Glimepiride 2 mg PO DAILY #30 tablet Levothyroxine [Synthroid] 50 mcg PO DAILY #30 tab Lisinopril [Zestril] 20 mg PO DAILY #30 tab Metoprolol Tartrate [Lopressor] 50 mg PO BID #30 tab Tamsulosin [Flomax] 0.4 mg PO DAILY #30 cap - Follow Up Plan Condition: FAIR Disposition: HOME/ ROUTINE Instructions: Heart Healthy Diet, Heart Failure, Adult (DC), Shortness of Breath (Dyspnea) Additional Instructions: You are medically stable for discharge. You will be given scripts for the following medications. Please note that some are new medications and adjustments have been made to old medications. This is a 1 month supply, for refills please go see Dr Yang. 1. Amlodipine 5mg take 1 pill with breakfast everyday 2. Aspirin 81mg take 1 pill with breakfast everyday 3. Cilostazol 100mg take 1 pill with breakfast everyday 4. Clopidogrel (Plavix) take 1 pill with dinner everyday 5. Glimepiride 2mg take 1 pill with breakfast everyday 6. Levothyroxine 50mcg take 1 pill with breakfast everyday 7. Metoprolol Tartrate (Lopressor) 50mg take 1 pill with breakfast and 1 pill with dinner everyday 8. Lisinopril 20mg take 1 pill with lunch everyday 9. Tamsulosin 0.4mg take 1 pill with breakfast everyday Please make an appointment with administration specialist Dr Aguirre and follow-up with him in 1 week. Please make an appointment with primary medical doctor, Dr Yang, and follow-up with him in 1 week. If symptoms return please go to your nearest hospital. Referrals: Pablo Aguirre MD [Staff Provider] - Kian Yang Jr., MD [Medical Doctor] - Clinical Quality Measures - CQM - Heart Failure Ejection Fraction: 40 % or Greater Left Ventricular Function to be assessed after discharge: No ELIZABETH Inhibitor Prescribed: Yes Beta-Alessandra Prescribed: Metoprolol Succinate Angiotensin II Receptor Alessandra Prescribed: Yes Follow Up Date (must be within 7 days from discharge): 04/19/18 Follow Up Time: 09:00
[2018-04-12 16:19] VITALS: BP 155/83; PULSE 70; TEMP 98.1; O2SAT 97
--- NOTE | 2018-04-12 22:30 | CARD ---
APPROVED REPORT EKG Measurement Heart [id number] [id number] <Conclusion> Sinus bradycardia Otherwise normal ECG
--- NOTE | 2018-04-12 22:30 | CARD ---
APPROVED REPORT EKG Measurement Heart [id number] <Conclusion> Sinus bradycardia Septal infarct, age undetermined Abnormal ECG
== END 2018-04-12 17:30 | disposition home or self-care (01) | DRG 292 ==
LOC: C.ER 21:18 → C.9E 23:06 → C.5S 04-11 10:33
PROVIDERS: ADMIT Internal Medicine; ATTEND Internal Medicine
DX: I11.0 Hypertensive heart disease with heart failure (principal); N17.9 Acute kidney failure, unspecified; E03.9 Hypothyroidism, unspecified; I50.33 Acute on chronic diastolic (congestive) heart failure; E78.00 Pure hypercholesterolemia, unspecified; I25.10 Atherosclerotic heart disease of native coronary artery without angina pectoris; Z87.891 Personal history of nicotine dependence; Z95.5 Presence of coronary angioplasty implant and graft; I27.20 Pulmonary hypertension, unspecified; I73.9 Peripheral vascular disease, unspecified

== ENCOUNTER 2018-12-25 12:14 | Emergency (ER) | payer OTHER, MEDICARE | END 2018-12-25 14:08 | disposition home or self-care (01) | LOC: C.ER 12:14 ==

== ENCOUNTER 2018-12-27 10:20 | Emergency (ER) | payer OTHER ==
[2018-12-27 10:21] VITALS: BMI 28.1
--- NOTE | 2018-12-27 11:40 | C.PDOC ---
History Of Present Illness 78 y/o male presents to the ER for wound check to left leg. Per chart, patient was evaluated and treated for hematoma 2 days ago in the ER. At the time, the hematoma was drained and there was no purulent discharge.He was discharged without medications.Patient denies having fever and chills. Time Seen by Provider: 12/27/18 11:23 Chief Complaint (Nursing): Wound Check History Per: Patient History/Exam Limitations: no limitations Onset/Duration Of Symptoms: Days Ago Current Symptoms Are (Timing): Still Present Severity: Moderate Past Medical History Reviewed: Historical Data, Nursing Documentation, Vital Signs Vital Signs: Last Vital Signs Temp 98.5 F 12/27/18 10:28 Pulse 84 12/27/18 10:28 Resp 17 12/27/18 10:28 BP 186/96 H 12/27/18 10:28 Pulse Ox 95 12/27/18 10:28 - Medical History PMH: CHF, Fractures (ankle), HTN, Hypercholesterolemia, Hypothyroidism, Kidney Stones, Chronic Kidney Disease Surgical History: Coronary Stent, Endoscopy - [facility] Procedures CATARAC PHACOEMULS/ASPIR (12/17/14) FLUOROSCOPY OF LEFT HEART USING OTHER CONTRAST (04/10/18) FLUOROSCOPY OF MULTIPLE CORONARY ARTERIES USING OTH CONTRAST (04/10/18) INSERT LENS AT CATAR EXT (12/17/14) LINEAR REP LID LACER (05/06/13) MEASURE OF CARDIAC SAMPL & PRESSURE, L HEART, PERC APPROACH (04/10/18) Family History: States: No Known Family Hx - Social History Hx Tobacco Use: No Hx Alcohol Use: No Hx Substance Use: No - Immunization History Hx Tetanus Toxoid Vaccination: No Hx Influenza Vaccination: No Hx Pneumococcal Vaccination: No Review Of Systems Except As Marked, All Systems Reviewed And Found Negative. Constitutional: Negative for: Fever, Chills Skin: Positive for: Other (left leg wound) Physical Exam - Physical Exam Appears: Non-toxic, No Acute Distress Skin: Normal Color, Warm, Dry, Other (eythema and warmth to anterior aspect of left lower leg,) Head: Atraumatic, Normacephalic Eye(s): bilateral: Normal Inspection Nose: Normal Oral Mucosa: Moist Neck: Supple Chest: Symmetrical Neurological/Psych: Oriented x3, Normal Speech ED Course And Treatment - Laboratory Results Result Diagrams: 12/27/18 12:23 12/27/18 12:23 O2 Sat by Pulse Oximetry: 95 (RA) Pulse Ox Interpretation: Normal - Other Rad CXR X-Ray: Viewed By Me, Read By Radiologist Interpretation: HISTORY: cellulitis. COMPARISON: Chest x-ray performed 04/10/18. TECHNIQUE: Chest, one view. FINDINGS: LUNGS: Mild bibasilar atelectasis. Please note that chest x-ray has limited sensitivity for the detection of pulmonary masses. PLEURA: No significant pleural effusion identified. No definite pneumothorax . CARDIOVASCULAR: Heart size appears top normal. Dense atherosclerotic calcifications of an ectatic aorta. OSSEOUS STRUCTURES: Degenerative changes of the spine. VISUALIZED UPPER ABDOMEN: Unremarkable. OTHER FINDINGS: None. IMPRESSION: Mild bibasilar atelectasis. Progress Note: Labs and CXR ordered.Patient treated with Zosyn IV and Vancomycin IV. Case discussed with . Patient will be admitted under . Disposition - Disposition Disposition: HOSPITALIZED Disposition Time: 14:19 Condition: STABLE Instructions: Cellulitis (Skin Infection), Adult (DC) Forms: [employer] (Hebrew), [employer] (Yi) Print Language: ALBANIAN - Clinical Impression Clinical Impression: Cellulitis of leg - PA / DRY BOSS / Resident Statement MD/DO has reviewed & agrees with the documentation as recorded. - Scribe Statement The provider has reviewed the documentation as recorded by the Cedrick Reyes Provider Attestation All medical record entries made by the Adrianibe were at my direction and personally dictated by me. I have reviewed the chart and agree that the record accurately reflects my personal performance of the history, physical exam, medical decision making, and the department course for this patient. I have also personally directed, reviewed, and agree with the discharge instructions and disposition. Decision To Admit - Pt Status Changed To: Hospital Disposition Of: Inpatient - Admit Certification Admit to Inpatient:: After my assessment, the patient will require hospitalization for at least two midnights. This is because of the severity of symptoms shown, intensity of services needed, and/or the medical risk in this patient being treated as an outpatient. - InPatient: Physician Admission Certification: I certify that this patient requires 2 or more midnights of care for the following reason:: Will need IV antibiotics - . Bed Request Type: Regular Admitting Physician: Kian Yang Jr. Patient Diagnosis: Cellulitis of leg
[2018-12-27 12:38] LABS: BASO # 0.1 K/uL (0.0-0.2); BASO % 2.3 % (0.0-2.0); EOS # 0.4 K/uL (0.0-0.7); EOS % 5.7 % (0.0-4.0); HEMOGLOBIN 13.3 g/dL (12.0-18.0); LYMPH # 0.8 K/uL (1.0-4.3); LYMPH % 11.8 % (20.0-40.0); MEAN CELL VOLUME 91.7 fL (80.0-94.0); MEAN CORPUSCULAR HEMOGLOBIN 30.4 pg (27.0-31.0); MEAN CORPUSCULAR HGB CONC 33.1 g/dL (33.0-37.0); MEAN PLATELET VOLUME 8.4 fL (7.2-11.7); MONO # 0.5 K/uL (0.0-0.8); MONO % 8.4 % (0.0-10.0); NEUT # 4.7 K/uL (1.8-7.0); NEUT % 71.8 % (50.0-75.0); RBC 4.39 Mil/uL (4.40-5.90); RED CELL DISTRIBUTION WIDTH 15.6 % (11.5-14.5); WHITE BLOOD COUNT 6.5 K/uL (4.8-10.8)
[2018-12-27 12:41] LABS: ALB/GLOB RATIO 1.2 (1.0-2.1); ALBUMIN 3.8 g/dL (3.5-5.0); ALT/SGPT < 6 U/L (21-72); AST/SGOT 22 U/L (17-59); BLOOD UREA NITROGEN 33 mg/dL (9-20); GFR NON-AFRICAN AMERICAN 28
[2018-12-27 12:43] LABS: INR 1.1; PROTHROMBIN TIME 11.5 SECONDS (9.7-12.2)
--- NOTE | 2018-12-27 13:08 | RAD ---
HISTORY: cellulitis COMPARISON: Chest x-ray performed 04/10/18 TECHNIQUE: Chest, one view. FINDINGS: LUNGS: Mild bibasilar atelectasis. Please note that chest x-ray has limited sensitivity for the detection of pulmonary masses. PLEURA: No significant pleural effusion identified. No definite pneumothorax . CARDIOVASCULAR: Heart size appears top normal. Dense atherosclerotic calcifications of an ectatic aorta. OSSEOUS STRUCTURES: Degenerative changes of the spine. VISUALIZED UPPER ABDOMEN: Unremarkable. OTHER FINDINGS: None. IMPRESSION: Mild bibasilar atelectasis.
[2018-12-27] MEDS ORDERED: Vancomycin 1 GM 1 GM/250 ML BAG IV STA (14:08)
[2018-12-27] MEDS ORDERED: Piperacillin/Tazobact 3.375 gm 100 ML IV STA (14:08)
[2018-12-27 14:25] VITALS: PULSE 65
[2018-12-27] MEDS ORDERED: Piperacillin/Tazobact 3.375 gm 100 ML IVPB ONE (14:48)
[2018-12-27] MEDS ORDERED: Vancomycin 1 GM 1 GM/250 ML BAG IVPB ONE (14:48)
--- NOTE | 2018-12-27 15:04 | CP.PCM.PCO ---
Additional Comments - Additional Comments Additional Comments: Pt to get one stat dose of Vanc and zosn IV and take Cipro 500mg BID home Rx for 10 days, pt wants to leave AMA and see dina in office tmrw AM
[2018-12-27 18:03] VITALS: BP 179/77; RESP 20; TEMP 98.8
[2018-12-27 22:20] VITALS: O2SAT 95
== END 2018-12-27 18:03 | disposition left against medical advice (07) ==
LOC: C.ER 10:20 → UNDOADMIN 14:18 → C.9E 14:18 → C.3T 17:01 → C.9E 17:01 → C.3T 17:07 → C.9E 17:07
DX: L03.116 Cellulitis of left lower limb (principal); I13.0 Hypertensive heart and chronic kidney disease with heart failure and stage 1 through stage 4 chronic kidney disease, or unspecified chronic kidney disease; I50.9 Heart failure, unspecified; N18.9 Chronic kidney disease, unspecified; E78.00 Pure hypercholesterolemia, unspecified; Z95.5 Presence of coronary angioplasty implant and graft
CPT/HCPCS: 71045; 80053; 85025; 85610; 85730; 96360; 99285; J2543; J3370